=== PATIENT | female | born 2000 | race Caucasian/White ===

== ENCOUNTER 2024-12-13 12:08 | Emergency (ER) | payer BC, SELFPAY ==
[2024-12-13] VITALS (9 sets, daily range): BP systolic 114; BP diastolic 63; PULSE 46–84; RESP 18; TEMP 36.6; O2SAT 92–100; BMI 21.9
--- NOTE | 2024-12-13 12:09 | ED_ITS ---
HPI - General Adult General Date Seen: 12/13/24 Chief complaint: Headache/Migraine Stated complaint: Stabbing head pain Time Seen by Provider: 12/13/24 12:09 History of Present Illness HPI narrative: 24 yo F with history of migraine headaches, depression/anxiety (on sertraline) presenting to the ER today with headache. She does have history of migraines but the headache she has experienced this in this week is dissimilar to her previous migraine headaches. Beginning 2 days ago on Tuesday in the evening when she was driving home she has been experiencing sharp stabbing brief episodes of pain involving her left parietal head. Symptoms actually began she when she was in the car driving home. She was not really twisting her neck or checking her blind spot when it started. She has brief episodes lasting a 2nd or 2 of pretty severe pain in that area on her left scalp. They only last a 2nd or 2 per episode, they often happen in small groups like twice in a row. The episode happened perhaps a few times an hour, every 5 or 10 minutes. She was trying to take [id number] medications such as Tylenol and NyQuil and noted that when she took the NyQuil she was able to sleep but was woken a few times at night due to the episodes of pain. No other symptoms with these episodes. No blurry vision. No double vision. No trouble with hearing. No nausea. No vomiting. No neck pain. No focal numbness or weakness in her arms or legs. No confusion. She has not had any recent head injury. No known carbon monoxide exposure. She lives with a roommate and that roommate is healthy and without headaches. No recent fever. No neck pain. The episodes are not triggered by any neck movement. No change with position. She went to the urgent care yesterday was treated with a migraine cocktail which she notes did help decrease the frequency and severity of the episodes pain for a few hours but they came back again. Since the episodes were persisting she came back to the ER today. Related Data Home Medications ?Medication ?Instructions ?Recorded ?Confirmed dextroamphetamine-amphetamine 5 mg 1 tab PO QAM 12/12/24 12/13/24 tablet dextroamphetamine-amphetamine ER 1 cap PO QAM 12/12/24 12/13/24 10 mg 24hr capsule,extend release levonorgestrel (Mirena) 1 device intrauterine ONCE 12/12/24 12/13/24 sertraline 100 mg tablet 100 mg PO QAM 12/12/24 12/13/24 Previous Rx's ?Medication ?Instructions ?Recorded carbamazepine 100 mg 100 mg PO BID #28 tabs 12/13/24 tablet,extended release,12 hr Allergies Allergy/AdvReac Type Severity Reaction Status Date / Time No Known Drug Allergies Allergy Verified 12/13/24 12:18 Exam Narrative: Exam Narrative: Constitutional: Appears well-developed and well-nourished. Alert. Conversant. Non toxic. HENT: Head: Atraumatic. No depressed skull fracture, Raccoon Eyes, Sandhu's sign, or hemotympanum. Face normal. TMs normal. No lesions or rash on her scalp Nose: Nose normal. TMs and mastoids normal bilaterally. Mouth/Throat: Oral mucosa is clear and moist. no trismus. Pharynx normal. Tonsils symmetric. No tonsillar enlargement, erythema, or exudate. Eyes: Conjunctivae normal. EOM normal. Pupils equal, round, and reactive to light. No scleral icterus. Neck: Normal range of motion. Neck supple. No tracheal deviation present. Cardiovascular: Normal rate, regular rhythm. No gallop. No friction rub. No murmur heard. Symmetric radial artery pulses Pulmonary/Chest: Effort normal. No stridor. No respiratory distress. No wheezes. No rales. No rhonchi . No tenderness. Abdominal: Soft. Bowel sounds normal. No distension. No mass. No tenderness. No rebound. No guarding. Musculoskeletal: RUE: Normal range of motion. No tenderness. No deformity LUE: Normal range of motion. No tenderness. No deformity RLE: Normal range of motion. No edema. No tenderness. No deformity LLE: Normal range of motion. No edema. No tenderness. No deformity Lymph: No cervical adenopathy. Neurological: Mental status normal. Attention normal. Alert and oriented x3. GCS 15. Memory normal. Speech fluent. Cognition normal. Cranial Nerves intact II-XII except I did not formally test gag or visual acuity. EOMI. Palate elevates symmetrically and tongue protrudes in the midline. Strength: 5/5 trapezius on the right and left 5/5 deltoid on the right and left 5/5 biceps on the right and left 5/5 triceps on the right and left 5/5 city constable on the right and left 5/5 thumb opposition on the right and le ft 5/5 finger abduction on the right and le ft 5/5 hip flexors (L3) on the right and le ft 5/5 quadriceps (L4) on the right and lef t 5/5 tibialis anterior on the right and l eft 5/5 EHL (L5) on the right and left 5/5 gastrocnemius (S1) on the right and left 5/5 hamstring on the right and left Sensation intact to light touch in both upper extremities (C4-T1) Sensation intact to light touch in Both lower extremities (L4-S1). Finger to nose and coordination normal. Gait normal. Skin: Skin is warm and dry. No rash noted. No pallor. Normal capillary refill. Psychiatric: Normal mood. Normal affect. Very polite. Const: Vital Signs, click to edit/add: Vital Signs - 24 hr 12/13/24 12:13 12/13/24 13:53 12/13/24 14:00 Temperature 97.8 F Pulse Rate 61 49 L Pulse Rate [Right Pulse Oximeter] 63 Respiratory Rate 18 Blood Pressure [Ri ght Upper Arm] 114/63 Pulse Oximetry 98 96 97 Oxygen Delivery Me thod Room Air 12/13/24 14:19 12/13/24 14:30 12/13/24 14:45 Temperature Pulse Rate 84 47 L 46 L Pulse Rate [Right Pulse Oximeter] Respiratory Rate Blood Pressure [Ri ght Upper Arm] Pulse Oximetry 92 97 98 Oxygen Delivery Me thod 12/13/24 15:00 12/13/24 15:15 12/13/24 15:30 Temperature Pulse Rate 47 L 47 L 49 L Pulse Rate [Right Pulse Oximeter] Respiratory Rate Blood Pressure [Ri ght Upper Arm] Pulse Oximetry 98 98 100 Oxygen Delivery Me thod Course Vital Signs Vital signs: Initial Vital Signs Temperature 97.8 F 12/13/24 12:13 Temperature Source Temporal Artery Scan 12/13/24 12:13 Pulse Rate 63 12/13/24 12:13 Pulse Rhythm Regular 12/13/24 12:13 Pulse Strength 3+ Normal 12/13/24 12:13 Respiratory Rate 18 12/13/24 12:13 Blood Pressure 114/63 12/13/24 12:13 Blood Pressure Mean 80 12/13/24 12:13 Blood Pressure Position Sitting 12/13/24 12:13 Pulse Oximetry 98 12/13/24 12:13 Oxygen Delivery Method Room Air 12/13/24 12:13 Vital Signs Temperature 97.8 F 12/13/24 12:13 Pulse Rate 63 12/13/24 12:13 Respiratory Rate 18 12/13/24 12:13 Blood Pressure 114/63 12/13/24 12:13 Pulse Oximetry 98 12/13/24 12:13 Oxygen Delivery Method Room Air 12/13/24 12:13 Temperature 97.8 F 12/13/24 12:13 Pulse Rate 49 L 12/13/24 15:30 Respiratory Rate 18 12/13/24 12:13 Blood Pressure 114/63 12/13/24 12:13 Pulse Oximetry 100 12/13/24 15:30 Oxygen Delivery Method Room Air 12/13/24 12:13 Medications Administered Medications: Discontinued Medications Generic Name Dose Route Start Last Admin Trade Name Freq PRN Reason Stop Dose Admin Diphenhydramine HCl 12.5 mg 12/13/24 13:09 12/13/24 13:43 Diphenhydramine 50 Mg/Ml Inj IVP 12/13/24 13:10 12.5 mg ONCE ONE Administration Ketorolac Tromethamine 15 mg 12/13/24 13:09 12/13/24 13:42 Ketorolac 15 Mg/Ml Inj IVP 12/13/24 13:10 15 mg ONCE ONE Administration Metoclopramide HCl 10 mg 12/13/24 13:09 12/13/24 13:42 Metoclopramide Hcl 5 Mg/Ml Inj IVP 12/13/24 13:10 10 mg ONCE ONE Administration Medical Decision Making [facility] Narrative Medical decision making narrative: Ths patient presents with a a new pattern of headache with very brief sharp stabbing pains affecting the left parietal side of her head. A broad differential diagnosis was considered including tension, migraine, analgesic rebound, occipital neuralgia, etc. Other less common but serious causes considered included meningitis, encephalitis, subarachnoid bleed, stroke, tumor, etc. overall I have low suspicion for meningitis. She has no history of brain tumors, MS, or other [employer] disease. With the new pattern of headache I suspect this is probably a neuralgia although this does not fit the anatomic distribution of trigeminal neuralgia or occipital neuralgia. Differential would also include new brain tumor causing nerve compression, less likely would be cervical artery dissection. I had a discussion with the patient (and her mother by phone) and we decided to go ahead with imaging. We felt that MRI would be more beneficial than CT given added sensitivity for small lesions and conservation or radiation exposure. MRI of the patient's brain and MRA of her head neck are both normal. Patient had improvement in her symptoms after receiving Toradol and migraine cocktail here in the ER but the start stabbing pains are starting to come back. Will try the patient on empiric course of carbamazepine. Will started a low-dose to minimize side effects-100 mg p.o. b.i.d.. Patient understands she should follow-up with primary care for recheck within the next 1-2 weeks for re-evaluation, and if necessary, medication adjustment. Patient's questions were answered and they feel improved after above interventions in ED. Headache precautions given for home. Lab Data Labs: Lab Results 12/13/24 Range/Units 13:30 HCG, Qual Negative (Negative) Imaging Data MRI - head: Attestation: I have reviewed the pertinent imaging results. Radiologist's impression: Impression: MRI Head: 1. Unremarkable MRI brain. No evidence of acute intracranial abnormality. MRA Head: 1. No proximal arterial occlusion, high-grade stenosis, aneurysm or high-flow vascular malformation. MRA Neck: 1. No evidence for hemodynamically significant stenosis or dissection in the neck. Discharge Plan Discharge Clinical Impression: Headache, Neuralgia Patient Disposition: Home, Self-Care Condition: Stable Instructions: Acute Headache (DC) Additional Instructions: As we discussed so for your workup looks reassuring. I suspect that your headache is probably caused by a nerve pain from 1 of the nerves affecting the side of your head. You can treat this pain with your regular medications including Tylenol and ibuprofen. We will also start you on a medication called carbamazepine which can help with nerve related headaches and pain. We will start with a low dose of carbamazepine. This may take several days or week to start feeling better. Please follow-up with your regular doctor or with a doctor here in [place] within 1-2 weeks for a recheck. If you are not feeling better, your doctor may need to increase your dose carbamazepine. You can follow-up with your regular doctors at home and [facility]. If you need to you can call the [facility] at [phone] arrange an ER follow-up visit within 1-2 weeks. If you have any changing or worsening symptoms or any concerns, please come back to the ER right away. Prescriptions: New carbamazepine 100 mg tablet extended release 12 hr 100 mg PO BID Qty: 28 0RF No Action sertraline 100 mg tablet 100 mg PO QAM dextroamphetamine-amphetamine 10 mg capsule,extended release 24hr 1 cap PO QAM dextroamphetamine-amphetamine 5 mg tablet 1 tab PO QAM Mirena 21 mcg/24hr (up to 8 yrs) 52 mg intrauterine device 1 device intrauterine ONCE Rx Instructions: as a single dose Follow Up/Referrals: Provider,Not a Local [Primary Care Provider] - Stand Alone Forms: [facility] Info Instructions
--- OUTSIDE RECORDS SUMMARY | 2024-12-13 12:10 | XMS_ITS | Referral Summary ---
Author Organization [employer] Address [address] [place] [address] Care Team Providers Care Associate Software Development Engineer Name Role Phone Brandon Walton MD Unavailable [phone] Janis Jain MD Unavailable [phone] Rio Calle MD Primary Care Provider Allergies No known active allergies Medications loratadine (AKA: CLARITIN) 10 mg oral Tablet Take by mouth once daily. Active tretinoin (RETIN-A) 0.025 % topical CreamIndications: Acne vulgaris Apply to the affected area(s) at bedtime. Apply to affected area. 45 g 5 02/09/20 24 Active levonorgestreL (MIRENA) 21 mcg/24 hours (up to 8 year) 52 mg intrauterine IUDIndications:IU D (intrauterine device) in place 1 Intra Uterine Device by intrauterine route once. 02/15/20 24 032 Active fluconazole (DIFLUCAN) 150 mg oral TabletIndications :BV (bacterial vaginosis),IUD (intrauterine device) in place Take 1 Tablet (150 mg) by mouth every week. Please wait until you are done with antibiotics before you use 2 Tablet 02/15/20 24 Active albuterol sulfate (PROVENTIL,VENTOL IN,PROAIR) 90 mcg/actuation inhalation HFA Aerosol InhalerIndication s:Generalized anxiety disorder 1-2 Puffs by inhalation route every 4 hours if needed for shortness of breath, cough, or with exercise. 18 g 07/06/20 24 025 Active fluticasone propionate (FLONASE) 50 mcg/actuation nasal [place], Suspension 1 [place] by nasal route in the morning. 06/22/20 22 Active dextroamphetamine -amphetamine (ADDERALL XR) 10 mg oral Capsule, Sust. Release 24HRIndications:A ttention deficit hyperactivity disorder (ADHD), unspecified ADHD type Take 1 Capsule (10 mg) by mouth in the morning. 30 Capsule 08/07/20 24 Active dextroamphetamine -amphetamine (ADDERALL) 5 mg oral TabletIndications :Attention deficit hyperactivity disorder (ADHD), unspecified ADHD type Take 1 Tablet (5 mg) by mouth in the morning. 30 Tablet 08/07/20 24 Active sertraline (ZOLOFT) 100 mg oral TabletIndications :Generalized anxiety disorder Take 1 Tablet (100 mg) by mouth in the morning. 90 Tablet 3 09/06/19 25 Active Active Problems Problem Noted Date Diagnosed Date Restless leg syndrome 09/03/2024 BV (bacterial vaginosis) 02/15/2024 ADHD 02/07/2024 Generalized anxiety disorder 02/07/2024 Right eye trauma 06/16/2018 Overview (06/16/2018): Soccer ball to R eye. Hemangioma 03/13/2018 Overview (03/13/2018): R nipple biopsy. [place]. Vocal cord dysfunction 01/13/2018 Seasonal allergic rhinitis due to pollen 018 Adolescent idiopathic scoliosis 03/02/2017 Overview (08/24/2019): 03/21/17: [facility], Dr Brandon Walton: Mild scoliosis. 07/11/17: stable from previous visit. 07/10/18: stable from last year. Lumbar curve 18 degrees. F/U in 6 months with standing spine PA. 01/21; follow up in 2 years. Resolved Problems Problem Noted Date Diagnosed Date Resolved Date Vocal cord dysfunction 01/13/201806/16 Closed fracture of right gre at toe with routine healing 03/17/2015 02/28/2017 Overview (03/17/2015): Ortho. Concussion 12/23/2014 02/28/2017 Overview (12/23/2014): 11/28/14: [facility], Dr. Gross. ASSESSMENT: Post Trauma Vision Syndrome. PLAN: Prescribed a pair of glasses to be used for viewing anything within arm's reach as well as in the classroom setting. Also decrease her contact prescription in the left eye temporarily to better balance her visual system. FOLLOW UP: 2 months. Curvature of thoracic spine 10/09/2014 08/24/2019 Overview (10/09/2014): Suspected from leg length discrepancy. 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 Mendoza. Self referral. Shoe gear modification. Constipation 12/04/2009 12/30/2011 Hypertrophy of tonsils 12/04/200912/29 Overview (12/08/2010): T&A removed 02/20/10 Encounter for hearing examin ation following failed hearing screening 12/04/2009 12/30/2011 Tension type headache 12/04/20092011 Nocturnal and diurnal enuresis 09/04/2008 10/09/2014 Overview (12/30/2011): Mom history until age 10 - 12. [employer]DA[employer] works. Immunizations Immunization Administration Dates Next Due DTaP Vac, <7 Yrs, IM (Daptacel,Infanrix,Tripedia) 09/21/2007,01/30/2004,05/03/2003,01/30,2002 Hepatitis A Vaccine, IM, Ped /Adol (2 doses) 02/28/2017,10/09/2014 Hepatitis B/HIB Vaccine, IM, (Comvax) 10/11/2003 ,01/30/2003,2002 Human Papilloma Virus Vaccin e(Gardasil 9) 09/01/2015,04/17/2015 Human Papilloma Virus Vaccine(Gardasil) 10/09/2014 Influenza Vac, H1N1 08/08/2009 Influenza Vac, IM, Quadrivalent 07/18/2015,09/14 Influenza Vac, IM, Quadrival ent Preserv Free, (>6 months) 08/24/2019,06/25/2014 Influenza Vac, IM, Trivalent (6-35 Mo) 3,07/05/2003 Influenza Vac, IM, Trivalent (>3 Yrs) ,06/13/2009,06/09/2007,08/03 Influenza Vac, IM, Trivalent , Preserv Free (Flulaval)(Fluarix)(Fluzone) 06/13/2009 Influenza Vac, Intranasal, T rivalent (Flumist) 09/04/2008 MMR Vaccine (Mumps, Measles, Rubella) SQ 09/21/2007,10/11/2003 Meningococcal Conj Vac,Tetra valent, IM (Menactra) 10/09/2014 Meningococcal Conj Vac,Tetra valent, IM (Menveo) 08/24/2019 Pneumococcal Conj,Poly,Vac,IM,<5Yr(Prevnar 7) 05/03/2003,01/30/2003,2002 Poliovirus Vaccine, IM or SQ (IPV) 09/21,05/03/2003,01/30/2003,12/06 Tdap Vaccine, IM, (Adacel)(Boostrix) 10/09/2014 Varicella Vaccine, SQ (Varivax) 09/21/2007,01/29 Social History Tobacco Use Types Packs/Day Years Used Date Smoking Tobacco: Never Smokeless Tobacco: Never Alcohol Use Standard Drinks/Week Comments No 0 (1 standard drink = 0.6 oz pur e alcohol) B1300 Health Literacy Answer Date Recor ded How often do you need to hav e someone help you when you read instructions, pamphlets, or other written material from your doctor or pharmacy? Never 02/15/2024 [facility] Utilities Answer Date Recorded In the past 12 months has th e electric, gas, oil, or water company threatened to shut off services in your home? No 02/15/2024 Humiliation, Afraid, Rape, and Kick questionnair e Answer Date Recorded Within the last year, have y ou been afraid of your partner or ex-partner? No 02/15/2024 Within the last year, have y ou been humiliated or emotionally abused in other ways by your partner or ex-partner? No Within the last year, have y ou been kicked, hit, slapped, or otherwise physically hurt by your partner or ex-partner? No 02/15/2024 Within the last year, have y ou been raped or forced to have any kind of sexual activity by your partner or ex-partner? No 02/15/2024 Social Connection and Isolat ion Panel [NHANES] Answer Date Recorded In a typical week, how many times do you talk on the phone with family, friends, or neighbors? More than three times a week 02/15/2024 How often do you get togethe r with friends or relatives? Once a week 02/15/2024 How often do you attend chur or restoration services? Never 02/15/2024 Do you belong to any clubs o r organizations such as temple groups, unions, fraternal or athletic groups, or school groups? Yes 02/15/2024 How often do you attend meet ings of the clubs or organizations you belong to? More than 4 times per year 02/15/2024 Are you , , di vorced, , never , or living with a partner? Never 02/15/2024 AUDIT-C Answer Date Recorded Q1: How often do you have a drink containing alc ohol? Monthly or less 02/15/2024 Q2: How many drinks containi ng alcohol do you have on a typical day when you are drinking? 1 or 2 02/15/2024 Q3: How often do you have si x or more drinks on one occasion? Never 02/15/2024 Overall Financial Resource Strain (CARDIA) Answe r Date Recorded How hard is it for you to pa y for the very basics like food, housing, medical care, and heating? Not hard at all 02/15/2024 [facility] of Occupat ional Health - Occupational Stress Questionnaire Answer Date Recorded Do you feel stress - tense, restless, nervous, or anxious, or unable to sleep at night because your mind is troubled all the time - these days? Not at all 02/15/2024 Exercise Vital Sign Answer Date Recorde d On average, how many days pe r week do you engage in moderate to strenuous exercise (like a brisk walk)? 6 days 02/15/2024 On average, how many minutes do you engage in exercise at this level? 90 min 02/15/2024 Hunger Vital Sign Answer Date Recorded Within the past 12 months, y ou worried that your food would run out before you got the money to buy more. Never true 02/15/20 24 Within the past 12 months, t he food you bought just didn't last and you didn't have money to get more. Never true 02/15/2024 Housing Stability Vital Sign Answer Krystian e Recorded In the last 12 months, was t here a time when you were not able to pay the mortgage or rent on time? No 02/15/2024 In the past 12 months, how m any times have you moved where you were living? 0 02/15/2024 At any time in the past 12 m onths, were you homeless or living in a residential (including now)? No 02/15/2024 Housing Stability Answer Date Recorded In the last 12 months, was t here a time when you were not able to pay the mortgage or rent on time? No 02/15/2024 Number of Places Lived in the Last Year Not on f ile 02/15/2024 Number of Places Lived in the Last Year (Outpati ent) Not on file 02/15/2024 Number of Places Lived in the Last Year (Inpatie nt) Not on file 02/15/2024 Unstable Housing in the Last Year Not on file 02/15/2024 Depression (PHQ-9) Answer Date Recorded Last PHQ-9 Score 0 08/07/2024 Thoughts of self harm Not at all 08/07/2024 Pediatric Housing Stability Answer Date Recorded At any time in the past 12 m [facility], were you homeless or living in a residential (including now)? No 02/15/2024 In the past 12 months, how m any times have you moved where you were living? 0 02/15/2024 Housing Condition Worry Not on file 02/15/20 24 Intimate Partner Violence Answer Date R ecorded Are you in a relationship wh ere you are physically hurt, threatened and/or made to feel afraid? No 02/15/2024 Transportation Needs Answer Date Record ed In the past 12 months, has l ack of transportation kept you from medical appointments, meetings, work, or from getting medicines or things needed for daily living? No 02/15/2024 Caregiver Education and Work Answer Krystian e Recorded High School Degree Not on file 02/15/2024 How often do you need to hav e someone help you when you read instructions, pamphlets, or other written material from your doctor or pharmacy? Never 02/15/2024 Comments No Sex and Gender Information Value Date Recorded Sex Assigned at Not on file Legal Sex Female 3:35 AM DRIVER LICENSE REVIEWING OFFICER Gender Identity Female 02/07/2024 10:19 AM CDT Sexual Orientation Not on file Last Filed Vital Signs Vital Sign Reading Time Taken Comments Blood Pressure 121/73 04/09/2024 6:35 PM CDT Pulse 60 04/09/2024 6:35 PM CDT Temperature 36.8 C (98.2 F) 04/09/2024 6:35 PM CDT Respiratory Rate 15 04/09/2024 6:35 PM CDT Oxygen Saturation 99% 04/09/2024 6:35 PM CDT Inhaled Oxygen Concentration - - Weight 63.3 kg (139 lb 9.6 oz) 02/15/2024 8:09 A M CDT Height 171.2 cm (5' 7.4) 02/15/2024 8:09 AM CDT Body Mass Index 21.61 02/15/2024 8:09 AM CDT Functional Status * Are you deaf or do you have serious difficulty hearing? Answer Date of Assessment Author No 04/09/2024 6:34 PM CDT Hillary Willson RN * Are you blind or do you have serious difficulty seeing, even when wearing glasses? Answer Date of Assessment Author No 04/09/2024 6:34 PM CDT Hillary Willson RN * Do you have serious difficulty walking or climbing stairs? Answer Date of Assessment Author No 04/09/2024 6:34 PM CDT Hillary Willson RN * Do you have difficulty dressing or bathing? Answer Date of Assessment Author No 04/09/2024 6:34 PM CELESTET Hillary Willson RN * Do you have difficulty doing errands alone such as visiting a doctor's office or shopping because of a physical, mental, or emotional condition? Answer Date of Assessment Author No 04/09/2024 6:34 PM CDT Hillary Willson RN Mental Status * Do you have trouble concentrating, remembering, or making decisions because of a physical, mental, or emotional condition? Answer Entry Date Author No 04/09/2024 6:34 PM CELESTET Hillary Willson RN Plan of Treatment Not on file Procedures Procedure Name Priority Date/Time Associated Diagnosis Comments CHLAMYDIA TRACHOMATIS AND NEISSERIA GONORRHOEAE, GENITAL AND URINE SOURCES, NAAT Routine 02/15/2024 8:57 AM CDT BV (bacterial vaginosis) IUD (intrauterine device) in place HIV-1 AND HIV-2 AG AND AB Routine 02/07/2024 11:10 AM CDT Encounter for screening for HIV HEPATITIS C AB Routine 02/07/2024 11:10 AM CDT Encounter for hepatitis C screening test for low risk patient PAP TEST Routine 02/07/2024 10:55 AM CDT Cervical cancer screening from Last 3 Months or Most Recently Relevant to Health Maintenance Results * CHLAMYDIA TRACHOMATIS AND NEISSERIA GONORRHOEAE, GENITAL AND URINE SOURCES, NAAT (02/15/2024 8:57 AM CDT) Chlamydia trachomatis, NAAT Negative Negative HOLOGIC PANTHER 02/16/2024 9:52 AM CDT [facility] Neisseria gonorrhoeae, NAAT Negative Negative HOLOGIC PANTHER 02/16/2024 9:52 AM CDT [facility] Swab ENDOCERVICAL STRUCTURE / Unknown Non-blood Collection / Unknown 02/15/2024 8:57 AM CDT 02/15/2024 9:34 AM CDT Narrative [facility] - 02/16/2024 9:52 AM CDT Methodology: RNA Target Amplification Veronica SHRESTHA LAB MOLECULAR O RDERABLES Final Result Performing Organization Address City/[facility]/ZIP Co de Phone Number [facility] [address] [place] [address], [place] [phone] * HEPATITIS C AB (02/07/2024 11:10 AM CDT) HCV Ab Nonreactive Nonreactive 02/07/2024 2:35 PM CDT [facility] Comment:Interpretation: Anti bodies to HCV were not detected; does not exclude the possibility of exposure to HCV. Blood VENOUS BLOOD / Unknown Venipuncture / Unknown 02/07/2024 11:10 AM CDT 02/07/2024 11:10 AM CDT Rio Calle MD LAB SEROLOGY ORDERABLES Final R esult Performing Organization Address City/[facility]/ZIP Co de Phone Number [facility] [address] [place] [address], [place] [phone] * HIV-1 AND HIV-2 AG AND AB (02/07/2024 11:10 AM CDT) HIV 1/2 Ab/Ag Nonreactive Nonreactive 2:33 PM CDT [facility] Blood VENOUS BLOOD / Unknown Venipuncture / Unknown 02/07/2024 11:10 AM CDT 02/07/2024 11:10 AM CDT Rio Calle MD LAB SEROLOGY ORDERABLES Final R esult [facility] [address] [place] [address], [place] [phone] * (ABNORMAL) PAP TEST (02/07/2024 10:55 AM CDT) Specimen Adequacy Satisfactory for evaluation: Endocervical component present. 4 10:01 AM T [facility] Interpretation Negative for intraepithelial lesion or malignancy. Negative 10:01 AM T [facility] Other Findings Fungal organisms morphologically consistent with Geraldine spp.(A) Follicular cervicitis, Moderate acute and chronic inflammatio n., Moderate acute inflammatio n., Moderate chronic inflammatio n., Severe acute and chronic inflammatio n., Severe acute inflammatio n., Specimen has been reflexed for HPV testing, follow-up as... 10:01 AM T [facility] HPV Reflex? Reflex if ASCUS only 10:01 AM T [facility] Menstrual Status Having periods 10:01 AM [facility] Disclaimer/Infor mational Comment The Pap test is an initial screening test that is helpful in the detection of certain benign, pre-malignant disorders of cervical and vaginal tissues. Like all medical tests, the Pap test has an inherent false-negative and false-positive rate, therefore, regular gynecologic health care with Pap test screening is highly suggested. In addition, an abnormal result may require additional confirmatory testing. 4 10:01 AM T [facility] Other CERVIX UTERI STRUCTURE / Unknown Non-blood Collection / Unknown 02/07/2024 10:55 AM CDT 02/07/2024 3:05 PM CDT us Rio Calle MD LAB CYTOLOGY ORDERABLES Final R esult [facility] [address] [place] [address], from Last 3 Months or Most Recently Relevant to Health Maintenance Insurance [employer] Care Teams Associate Software Development Engineer Relationship Specialty Start Date End Date Rio Calle MD [address] [place] [address] [address] [place] [phone] PCP - General Family Medicine 02/07/24 Brandon Walton MD [address] [facility] [address] [place] [address] 10/03/17 Janis Jain MD [address] [place] [phone] 10/03/17 Additional Source Comments PLEASE NOTE: Replies to this message will not be received.[facility]
--- OUTSIDE RECORDS SUMMARY | 2024-12-13 12:10 | XMS_ITS | Encounter Summary ---
Author Organization [facility] Address [address] [place] [address] Care Team Providers Care Hand Almond Blancher Name Role Phone Janis Jain MD Primary Care Provider [phone] Brandon Walton MD Unavailable [phone] Janis Jain MD Unavailable [phone] Unknown, Provider Primary Care Provider Unavaila ble Janis Jain MD Primary Care Provider [phone] Rio Calle MD Primary Care Provider [phone] Encounter Details Date Type Department Care Team (Late st Contact Info) Description 08/22/2014 Historical Conversion [facility] Family Medicine [address] [place] [id number] Alma Pearson MD [address] [facility] [address] [place] [address] Social History Tobacco Use Types Packs/Day Years Used Date Smoking Tobacco: Never Smokeless Tobacco: Never Alcohol Use Standard Drinks/Week Comments No 0 (1 standard drink = 0.6 oz pur e alcohol) Comments No Sex and Gender Information Value Date Recorded Sex Assigned at Not on file 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 Gender Identity Female 02/07/2024 10:19 AM CDT Sexual Orientation Not on file documented as of this encounter Last Filed Vital Signs Vital Sign Reading Time Taken Comments Blood Pressure 100/79 08/22/2014 8:45 PM ADMINISTRATIVE VOLUNTEER Pulse - - Temperature - - Respiratory Rate - - Oxygen Saturation - - Inhaled Oxygen Concentration - - Weight 35.9 kg (79 lb 4 oz) 08/22/2014 8:[address] Height 148.6 cm (4' 10.5) 08/22/2014 8:45 PM CS T Body Mass Index 16.28 08/22/2014 8:45 PM ADMINISTRATIVE VOLUNTEER Body Mass Index Percentile 22.56% 08/22/2014 8:4 5 PM ADMINISTRATIVE VOLUNTEER Growth Chart: [facility] (Girls, 2- 20 Years) documented in this encounter Functional Status * Are you deaf or do you have serious difficulty hearing? Answer Date of Assessment Author No 01/28/2014 12:36 PM CDT Mahogany Bhakta LPN * Are you blind or do you have serious difficulty seeing, even when wearing glasses? Answer Date of Assessment Author No 01/28/2014 12:36 PM CDT Mahogany Bhakta LPN * Do you have serious difficulty walking or climbing stairs? Answer Date of Assessment Author No 01/28/2014 12:36 PM CDT Mahgoany Bhakta LPN * Do you have difficulty dressing or bathing? Answer Date of Assessment Author No 01/28/2014 12:36 PM CDT Mahogany Bhakta LPN * Do you have difficulty doing errands alone such as visiting a doctor's office or shopping because of a physical, mental, or emotional condition? Answer Date of Assessment Author No 01/28/2014 12:36 PM CDT Mahogany Bhakta LPN documented as of this encounter Mental Status * Do you have trouble concentrating, remembering, or making decisions because of a physical, mental, or emotional condition? Answer Entry Date Author No 01/28/2014 12:36 PM CDT Mahogany Bhakta LPN documented in this encounter Plan of Treatment Not on file documented as of this encounter Visit Diagnoses Not on filedocumented in this encounter Additional Health Concerns Infection Onset Date Last Indicated Resolved Time COVID-19 Rule Out 02/08/2020 02/08/2020 02/08/2020 2:45 PM CDT documented as of this encounter Care Teams Hand Almond Blancher Relationship Specialty Start Date End Date Janis Jain MD [address] [place] [address] [place] [phone] PCP - General 09/04/08 04/03/20 Unknown, Provider . SURJIT ROY [address] PCP - General 04/04/20 04/10/20 Janis Jain MD [address] [place] [address] [place] [phone] PCP - General Pediatrics 04/11/20 02/06/24 Rio Calle MD [address] [place] [address] [address] [phone] PCP - General Family Medicine 02/07/24 Brandon Walton MD [address] [place] [address] [facility] [address] [place] [address] 10/03/17 Janis Jain MD [address] [place] [address] [place] [phone] 10/03/17 documented as of this encounter Additional Source Comments PLEASE NOTE: Replies to this message will not be received.[facility]
--- OUTSIDE RECORDS SUMMARY | 2024-12-13 12:10 | XMS_ITS | Encounter Summary ---
Author Organization [facility] [facility] Address [address] [place] [address] Care Team Providers Care Bottler Name Role Phone Janis Jain MD Primary Care Provider Brandon Walton MD Unavailable [phone] Janis Jain MD Unavailable [phone] Unknown, Provider Primary Care Provider Unavaila ble Janis Jain MD Primary Care Provider [phone] Rio Calle MD Primary Care Provider [phone] Encounter Details Date Type Department Care Team (Late st Contact Info) Description 07/09/2012 Historical Conversion [facility] Family Medicine [address] [place] [address] Ishan Erickson MD [address], [place] [address] Social History Tobacco Use Types Packs/Day Years Used Date Smoking Tobacco: Never Alcohol Use Standard Drinks/Week Comments No 0 (1 standard drink = 0.6 oz pur e alcohol) Comments Unknown Sex and Gender Information Value Date Recorded Sex Assigned at Not on file 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 Gender Identity Female 02/07/2024 10:19 AM CDT Sexual Orientation Not on file documented as of this encounter Last Filed Vital Signs Vital Sign Reading Time Taken Comments Blood Pressure - - Pulse - - Temperature - - Respiratory Rate - - Oxygen Saturation - - Inhaled Oxygen Concentration - - Weight 29.9 kg (66 lb) 07/09/2012 4:29 PM EMERGENCY OPERATOR Height 139.7 cm (4' 7) 07/09/2012 4:29 PM EMERGENCY OPERATOR Body Mass Index 15.34 07/09/2012 4:29 PM EMERGENCY OPERATOR Body Mass Index Percentile 24.33% 07/09/2012 4:2 9 PM EMERGENCY OPERATOR Growth Chart: [facility] (Girls, 2- 20 Years) documented in this encounter Plan of Treatment Not on file documented as of this encounter Visit Diagnoses Not on filedocumented in this encounter Additional Health Concerns Infection Onset Date Last Indicated Resolved Time COVID-19 Rule Out 02/08/2020 02/08/2020 02/08/2020 2:45 PM CDT documented as of this encounter Care Teams Bottler Relationship Specialty Start Date End Date Janis Jain MD [address] [place] [phone] PCP - General 09/04/08 04/03/20 Unknown, [place] [address] PCP - General 04/04/20 04/10/20 Janis Jain MD [address] [place] [phone] PCP - General Pediatrics 04/11/20 02/06/24 Rio Calle MD [address] [place] [address] [address] [place] [phone] PCP - General Family Medicine 02/07/24 Brandon Walton MD [address] [facility] [address] [place] [address] 10/03/17 Janis Jain MD [address] [place] [phone] 10/03/17 documented as of this encounter Additional Source Comments PLEASE NOTE: Replies to this message will not be received.[facility] and [facility]
--- OUTSIDE RECORDS SUMMARY | 2024-12-13 12:10 | XMS_ITS | Clinical Summary ---
Author Organization [employer] [facility] [employer] Address [address] [place] [address] Care Team Providers Care Administrative Assistant Front Desk Name Role Phone Brandon Walton MD Unavailable [phone] Janis Jain MD Unavailable [phone] Rio Calle MD Primary Care Provider [...] Active fluticasone propionate (FLONASE) 50 mcg/actuation nasal [place], Suspension 1 [place] by nasal route in the morning. 06/22/20 [...] (Adacel)(Boostrix) 10/09/2014 Varicella Vaccine, SQ (Varivax) 09/21/2007,01/29 Family History Medical History Relation Name Comments Other Brother Arian Hyperlipidemia Father Julio Heart Disease Paternal Grandfather Jt Hyperlipidemia Paternal Grandfather Jt Relation Name Status Comments Brother Arian Alive Father Julio Alive Mother Maile Alive Paternal Grandfather Jt Paternal Grandmother Linda Alive Sister Matilda Alive Social History Tobacco Use Types Packs/Day Years [...] from your doctor or pharmacy? Never 02/15/2024 [facility] Utilities Answer Date Recorded In the past 12 months has e [employer], gas, oil, or water [employer] threatened to shut off services in your [...] How often do you attend chur or samaritan services? Never 02/15/2024 Do you belong to any clubs o r organizations such as protestant groups, unions, fraternal or athletic groups, or [...] and heating? Not hard at all 02/15/2024 [facility] - Occupational Stress [...] any time in the past 12 m [facility], were you homeless or living in a [place] health care facility (including now)? No 02/15/2024 Housing Stability Answer [...] any time in the past 12 m [facility], were you homeless or living in a [place] health [place] facility (including now)? No 02/15/2024 In the past [...] on file Legal Sex Female 3:35 AM STEEL FABRICATOR Gender Identity Female 02/07/2024 10:19 AM CDT [...] Mass Index 21.61 02/15/2024 8:09 AM CDT Plan of Treatment Health Maintenance Due Date Last Done Comments COVID-19 Vaccine (2023- season) 2024 09/02/2021, 12/25/2020, 12/04/2020 DTaP/Tdap/Td Vaccines (7 - Td or Tdap) 10/09/2024 10/09/2014, 09/21/2007, 01/30/2004, Additional history exists Chlamydia Screen Age 16-24 Years 02/14/2025 02/15/2024, 05/16/2019 Depression Screening 08/07/2025 08/07/2024, 08/07/20 24 Cervical Cancer Screening 02/06/2027 02/07/2024 Varicella Zoster Sequential (1 of 2) 2052 Respiratory Syncytial Virus (RSV) Vaccine (1 - 1-dose 75+ series) 2077 Pneumococcal Vaccine (0-49 Years) Aged Out 05/03/2003, 01/30/2003, 2002 No longer eligible based on patient's age to complete this topic HIB Vaccines Completed 10/11/2003, 01/04, 2002 Hepatitis B Vaccines Completed 10/11/2003, 01/30/2003, 2002 HPV Vaccines Completed 09/01/2015, 04/05, 10/09/2014 Hepatitis A Vaccines Completed 02/28/2017, 10/09/19 15 Meningococcal Vaccines Completed 08/24/2019, 2014 Meningococcal B Vaccines Completed 12/29/2021, 04/05 HIV Screen Completed 02/07/2024 Hepatitis C Testing Completed 02/07/2024 Influenza Vaccine Completed 06/07/2024, , 07/02/2021, Additional history exists Procedures Procedure Name Priority Date/Time Associated Diagnosis [...] Negative HOLOGIC PANTHER 02/16/2024 9:52 AM CDT [facility] Neisseria gonorrhoeae, NAAT Negative [facility] 02/16/2024 9:52 AM CDT [facility] Swab ENDOCERVICAL STRUCTURE / Unknown Non-blood Collection / Unknown 02/15/2024 8:57 AM CDT 02/15/2024 9:34 AM CDT Narrative [facility] - 02/16/2024 9:52 AM CDT Methodology: RNA Target Amplification us Veronica SHRESTHA LAB MOLECULAR O RDERABLES Final Result [facility] [address] [place] [address], [place] [phone] * HEPATITIS C AB (02/07/2024 11:10 AM CDT) Pathologist [facility] HCV Ab Nonreactive Nonreactive 02/07/2024 2:35 PM CDT [facility] Comment:Interpretation: Anti bodies to HCV were not detected; does not exclude the possibility of exposure to HCV. Blood VENOUS BLOOD / Unknown Venipuncture / Unknown 02/07/2024 11:10 AM CDT 02/07/2024 11:10 AM CDT us Rio Calle MD LAB SEROLOGY ORDERABLES Final R esult [facility] [address] [place] [address], [place] [phone] * HIV-1 AND HIV-2 AG AND AB (02/07/2024 11:10 AM CDT) HIV 1/2 Ab/Ag Nonreactive Nonreactive 4 2:33 PM CDT [facility] Blood VENOUS BLOOD / Unknown Venipuncture / Unknown 02/07/2024 11:10 AM CDT 02/07/2024 11:10 AM CDT us Rio Calle MD LAB SEROLOGY ORDERABLES Final R esult [facility] [address] [place] [address], [place] [phone] * (ABNORMAL) PAP TEST (02/07/2024 10:55 AM CDT) Specimen Adequacy Satisfactory for evaluation: Endocervical component present. 4 10:01 AM T [facility] Interpretation Negative for intraepithelial lesion or malignancy. 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 4 10:01 AM T [facility] HPV Reflex? Reflex if ASCUS only 4 10:01 AM [facility] Menstrual Status Having periods / 10:01 AM T [facility] Disclaimer/Infor mational Comment The Pap [...] abnormal result may require additional confirmatory testing. 10:01 AM CDT [facility] LABORATORY [facility] Other CERVIX UTERI STRUCTURE / Unknown Non-blood Collection / Unknown 02/07/2024 10:55 AM CDT 02/07/2024 3:05 PM CDT us Rio Calle MD LAB CYTOLOGY ORDERABLES Final R esult [facility] [address] [place] [address], from Last 3 Months or Most Recently Relevant to Health Maintenance Insurance [facility] [employer] [facility] [employer] [facility] [employer] [facility] [employer] Care Teams Administrative Assistant Front Desk Relationship Specialty Start Date End Date Rio Calle MD [address] [place] [address] [address] [place] [phone] PCP - General Family Medicine 02/07/24 Brandon Walton MD [address] [facility] [address] [place] [address] 10/03/17 Janis Jain MD [address] [place] [phone] 10/03/17 Additional Source Comments PLEASE NOTE: Replies to this message will not be received.[facility] and [facility]
--- OUTSIDE RECORDS SUMMARY | 2024-12-13 12:10 | XMS_ITS | Encounter Summary ---
Author Organization [facility] Address [address] [place] [address] Care Team Providers Care Aerospace Physiological Technician Name Role Phone Janis Jain MD Primary Care Provider [phone] Brandon Walton MD Unavailable Janis Jain MD Unavailable [phone] Unknown, Provider Primary Care Provider Unavaila ble Janis Jain MD Primary Care Provider [phone] Rio Calle MD Primary Care Provider [phone] Encounter Details Date Type Department Care Team (Late st Contact Info) Description 08/22/2014 Historical Conversion [facility] Family Medicine [address] [place] [address] Alma Pearson MD [address] [facility] [address] [place] [address] Social History Tobacco Use Types Packs/Day Years Used Date Smoking Tobacco: Never Smokeless Tobacco: Never Alcohol Use Standard Drinks/Week Comments No 0 (1 standard drink = 0.6 oz pur e alcohol) Comments No Sex and Gender Information Value Date Recorded Sex Assigned at Not on file 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 Answer Date of Assessment Author No 01/28/2014 12:36 PM CDT Mahogany Bhakta, MARKETING PROJECT COORDINATOR * Are you blind or do you have serious difficulty seeing, even when wearing glasses? Answer Date of Assessment Author No 01/28/2014 12:36 PM CDT Mahogany Bhakta, MARKETING PROJECT COORDINATOR * Do you have serious difficulty walking or climbing stairs? Answer Date of Assessment Author No 01/28/2014 12:36 PM CDT Mahogany Bhakta, MARKETING PROJECT COORDINATOR * Do you have difficulty dressing or bathing? Answer Date of Assessment Author No 01/28/2014 12:36 PM CDT Mahogany Bhakta, MARKETING PROJECT COORDINATOR * Do you have difficulty doing errands alone such as visiting a doctor's office or shopping because of a physical, mental, or emotional condition? Answer Date of Assessment Author No 01/28/2014 12:36 PM CDT Mahogany Bhakta, MARKETING PROJECT COORDINATOR documented as of this encounter Mental Status * Do you have trouble concentrating, remembering, or making decisions because of a physical, mental, or emotional condition? Answer Entry Date Author No 01/28/2014 12:36 PM CDT Mahogany Bhakta, MARKETING PROJECT COORDINATOR documented in this encounter Plan of Treatment Not on file documented as of this encounter Visit Diagnoses Not on filedocumented in this encounter Additional Health Concerns Infection Onset Date Last Indicated Resolved Time COVID-19 Rule Out 02/08/2020 02/08/2020 02/08/2020 2:45 PM CDT documented as of this encounter Care Teams Aerospace Physiological Technician Relationship Specialty Start Date End Date Janis Jain MD [address] [place] [phone] PCP - General 09/04/08 04/03/20 Unknown, Provider . [place] [address] PCP - General 04/04/20 04/10/20 Janis Jain MD [address] [place] [address] [place] [phone] PCP - General Pediatrics 04/11/20 02/06/24 Rio Calle MD [address] [place] [address] 120 [place] [phone] PCP - General Family Medicine 02/07/24 Brandon Walton MD [address] [facility] [address] [place] [address] 10/03/17 Janis Jain MD [address] [place] [phone] 10/03/17 documented as of this encounter Additional Source Comments PLEASE NOTE: Replies to this message will not be received.[facility]
--- OUTSIDE RECORDS SUMMARY | 2024-12-13 12:11 | XMS_ITS | Encounter Summary ---
Author Organization [facility] [employer] [facility] Address [address] [place] [address] Care Team Providers Care Quality Control Lab Tech Name Role Phone Janis Jain MD Primary Care Provider [phone] Brandon Walton MD Unavailable [phone] Janis Jain MD Unavailable [phone] Unknown, Provider Primary Care Provider Unavaila ble Janis Jain MD Primary Care Provider Rio Calel MD Primary Care Provider [phone] Encounter Details Date Type Department Care Team (Late st Contact Info) Description 09/22/2016 Historical Conversion [facility] Family Medicine [address] [place] [address] Racquel Ashby, [place] Social History Tobacco Use Types Packs/Day Years Used Date Smoking Tobacco: Never Smokeless Tobacco: Never Alcohol Use Standard Drinks/Week Comments No 0 (1 standard drink = 0.6 oz pur e alcohol) Comments No Sex and Gender Information Value Date Recorded Sex Assigned at Not on file Legal Sex Female 3:35 AM COMPUTER SYSTEMS ADMINISTRATOR Gender Identity Female 02/07/2024 10:19 AM CDT Sexual Orientation Not on file documented as of this encounter Last Filed Vital Signs Vital Sign Reading Time Taken Comments Blood Pressure 99/57 09/22/2016 7:12 PM COMPUTER SYSTEMS ADMINISTRATOR Pulse - - Temperature - - Respiratory Rate - - Oxygen Saturation - - Inhaled Oxygen Concentration - - Weight 50 kg (110 lb 4 oz) 09/22/2016 7:12 PM CS T Height 163.3 cm (5' 4.3) 09/22/2016 7:12 PM COMPUTER SYSTEMS ADMINISTRATOR Body Mass Index 18.75 09/22/2016 7:12 PM COMPUTER SYSTEMS ADMINISTRATOR Body Mass Index Percentile 42.03% 09/22/2016 7:1 2 PM COMPUTER SYSTEMS ADMINISTRATOR Growth Chart: [facility] (Girls, 2- 20 Years) documented in this encounter Functional Status * Are you deaf or do you have serious difficulty hearing? Answer Date of Assessment Author No 01/28/2014 12:36 PM CDT Mahogany Bhakta LPN * Are you blind or do you have serious difficulty seeing, even when wearing glasses? Answer Date of Assessment Author No 01/28/2014 12:36 PM CDT Mahogany Bhakta, NUT CULLER * Do you have serious difficulty walking or climbing stairs? Answer Date of Assessment Author No 01/28/2014 12:36 PM CDT Mahogany Bhakta, NUT CULLER * Do you have difficulty dressing or bathing? Answer Date of Assessment Author No 01/28/2014 12:36 PM CDT Mahogany Bhakta, NUT CULLER * Do you have difficulty doing errands alone such as visiting a doctor's office or shopping because of a physical, mental, or emotional condition? Answer Date of Assessment Author No 01/28/2014 12:36 PM CDT Mahogany Bhakta, NUT CULLER documented as of this encounter Mental Status * Do you have trouble concentrating, remembering, or making decisions because of a physical, mental, or emotional condition? Answer Entry Date Author No 01/28/2014 12:36 PM CDT Mahogany Bhakta, NUT CULLER documented in this encounter Plan of Treatment Not on file documented as of this encounter Visit Diagnoses Not on filedocumented in this encounter Additional Health Concerns Infection Onset Date Last Indicated Resolved Time COVID-19 Rule Out 02/08/2020 02/08/2020 02/08/2020 2:45 PM CDT documented as of this encounter Care Teams Quality Control Lab Tech Relationship Specialty Start Date End Date Janis Jain MD [address] [place] [address] [place] [phone] PCP - General 09/04/08 04/03/20 Unknown, Provider . [place] [address] PCP - General 04/04/20 04/10/20 Janis Jain MD [address] [place] [phone] PCP - General Pediatrics 04/11/20 02/06/24 Rio Calle MD [address] [place] [address] [address] [place] [phone] PCP - General Family Medicine 02/07/24 Brandon Walton MD [address] [facility] [address] [place] [address] 10/03/17 Janis Jain MD [address] [place] [phone] 10/03/17 documented as of this encounter Additional Source Comments PLEASE NOTE: Replies to this message will not be received.[facility] and [facility]
--- OUTSIDE RECORDS SUMMARY | 2024-12-13 12:11 | XMS_ITS | Encounter Summary ---
Author Organization [facility] [employer] [facility] Address [address] [place] [address] Care Team Providers Care Scientific Software Engineer Name Role Phone Janis Jain MD Primary Care Provider [phone] Brandon Walton MD Unavailable [phone] Janis Jain MD Unavailable [phone] Unknown, Provider Primary Care Provider Unavaila ble Janis Jain MD Primary Care Provider [phone] Rio aClle MD Primary Care Provider [phone] Encounter Details Date Type Department Care Team (Late st Contact Info) Description 09/22/2016 Historical Conversion [address] [address] Racquel Ashby, [place] Social History Tobacco Use Types Packs/Day Years Used Date Smoking Tobacco: Never Smokeless Tobacco: Never Alcohol Use Standard Drinks/Week Comments No 0 (1 standard drink = 0.6 oz pur e alcohol) Comments No Sex and Gender Information Value Date Recorded Sex Assigned at Not on file Legal Sex Female 3:35 AM RESOURCE CONSERVATION SPECIALIST Gender Identity Female 02/07/2024 10:19 AM CDT [...] No 01/28/2014 12:36 PM CDT Mahogany Bhakta, DEVELOPMENT OFFICER * Do you have difficulty doing errands [...] No 01/28/2014 12:36 PM CDT Mahogany Bhakta, MAX documented in this encounter Plan of Treatment Not on file documented as of this encounter Visit Diagnoses Not on filedocumented in this encounter Additional Health Concerns Infection Onset Date Last Indicated Resolved Time COVID-19 Rule Out 02/08/2020 02/08/2020 02/08/2020 2:45 PM CDT documented as of this encounter Care Teams Scientific Software Engineer Relationship Specialty Start Date End Date Janis Jain MD [address] [place], [place] [address] [phone] PCP - General 09/04/08 04/03/20 Unknown, [place] [address] PCP - General 04/04/20 04/10/20 Janis Jain MD [address] [place] [address] [place] [phone] PCP - General Pediatrics 04/11/20 02/06/24 Rio Calle MD [address] [place] [address] 120 [place] [phone] PCP - General Family Medicine 02/07/24 Brandon Walton MD [address] [facility] [address] [place] [address] 10/03/17 Janis Jain MD [address] [place] [phone] 10/03/17 documented as of this encounter Additional Source Comments PLEASE NOTE: Replies to this message will not be received.[facility] and [facility] [place] [facility]
--- OUTSIDE RECORDS SUMMARY | 2024-12-13 12:11 | XMS_ITS | Encounter Summary ---
Author Organization [facility] [employer] [facility] Address [address] [place] [address] Care Team Providers Care Carbonation Equipment Operator Name Role Phone Janis Jain MD Primary Care Provider [phone] Brandon Walton MD Unavailable Janis Jain MD Unavailable [phone] Unknown, Provider Primary Care Provider Unavaila ble Janis Jain MD Primary Care Provider [phone] Rio Calle MD Primary Care Provider Encounter Details Date Type Department Care Team (Late st Contact Info) Description 08/08/2009 Clinic Encounter [facility] Pediatrics [address] [place] [address] Janis Jain MD [address] [place] [address] Social History Tobacco Use Types Packs/Day Years Used Date Smoking Tobacco: Never Alcohol Use Standard Drinks/Week Comments No 0 (1 standard drink = 0.6 oz pur e alcohol) Comments Unknown Sex and Gender Information Value Date Recorded Sex Assigned at Not on file Legal Sex Female 3:35 AM HEAD START DIRECTOR Gender Identity Female 02/07/2024 10:19 AM CDT Sexual Orientation Not on file documented as of this encounter Plan of Treatment Not on file documented as of this encounter Visit Diagnoses Not on filedocumented in this encounter Additional Health Concerns Infection Onset Date Last Indicated Resolved Time COVID-19 Rule Out 02/08/2020 02/08/2020 02/08/2020 2:45 PM CDT documented as of this encounter Care Teams Carbonation Equipment Operator Relationship Specialty Start Date End Date Janis Jian MD [address] [facility] [phone] PCP - General 09/04/08 04/03/20 Unknown, [place] [address] PCP - General 04/04/20 04/10/20 Janis Jain MD [address] [place] [address] [place] [phone] PCP - General Pediatrics 04/11/20 02/06/24 Rio Calle MD [address] [place] [address] [place] [phone] PCP - General Family Medicine 02/07/24 Brandon Walton MD [address] [facility] [address] [place] [address] 10/03/17 Janis Jain MD [address] [place] [address] [place] [phone] 10/03/17 documented as of this encounter Additional Source Comments PLEASE NOTE: Replies to this message will not be received.[facility]
--- OUTSIDE RECORDS SUMMARY | 2024-12-13 12:11 | XMS_ITS | Encounter Summary ---
Author Organization [facility] [employer] [facility] [employer] [facility] Address [address] [place] [address] Care Team Providers Care Product Technology Scientist Name Role Phone Janis Jain MD Primary Care Provider [phone] Brandon Walton MD Unavailable [phone] Janis Jain MD Unavailable [phone] Unknown, Provider Primary Care Provider Unavaila ble Janis Jain MD Primary Care Provider [phone] Rio Calle MD Primary Care Provider Encounter Details Date Type Department Care Team (Late st Contact Info) Description 09/18/2016 Historical Conversion [facility] [address] [place] [address] Fabrice Chris, PAC [address] [facility] [address] [place] [address] Social History Tobacco Use Types Packs/Day Years Used Date Smoking Tobacco: Never Smokeless Tobacco: Never Alcohol Use Standard Drinks/Week Comments No 0 (1 standard drink = 0.6 oz pur e alcohol) Comments No Sex and Gender Information Value Date Recorded Sex Assigned at Not on file Legal Sex Female 3:35 AM ACTIVE DIRECTORY SPECIALIST Gender Identity Female 02/07/2024 10:19 AM CDT Sexual Orientation Not on file documented as of this encounter Last Filed Vital Signs Vital Sign Reading Time Taken Comments Blood Pressure 110/72 09/18/2016 1:38 PM ACTIVE DIRECTORY SPECIALIST Pulse - - Temperature - - Respiratory Rate - - Oxygen Saturation - - Inhaled Oxygen Concentration - - Weight 49.2 kg (108 lb 8 oz) 09/18/2016 1:38 PM ACTIVE DIRECTORY SPECIALIST Height 165.1 cm (5' 5) 09/18/2016 1:38 PM ACTIVE DIRECTORY SPECIALIST Body Mass Index 18.06 09/18/2016 1:38 PM ACTIVE DIRECTORY SPECIALIST Body Mass Index Percentile 31.88% 09/18/2016 1:3 8 PM ACTIVE DIRECTORY SPECIALIST Growth Chart: [facility] (Girls, 2- 20 Years) documented in this [...] documented as of this encounter Care Teams Product Technology Scientist Relationship Specialty Start Date End Date Janis Jain MD [address] [place] [address] SURJIT GARCIA [phone] PCP - General 09/04/08 04/03/20 Unknown, Provider . SURJIT ROY [address] PCP - General 04/04/20 04/10/20 Janis Jain MD [address] [place] [address] SURJIT GARCIA [phone] PCP - General Pediatrics 04/11/20 02/06/24 Rio Calle MD [address] [place] [address] 120 SURJIT SMITH [phone] PCP - General Family Medicine 02/07/24 Brandon Walton MD [address] [facility] [address] [place] [address] 10/03/17 Janis Jain MD [address] [place] [address] SURJIT GARCIA [phone] 10/03/17 documented as of this encounter Additional Source Comments PLEASE NOTE: Replies to this message will not be received.[facility]
--- OUTSIDE RECORDS SUMMARY | 2024-12-13 12:11 | XMS_ITS | Encounter Summary ---
Author Organization [facility] [employer] [facility] Address [address] [place] [address] Care Team Providers Care Director Of Content And Programming Name Role Phone Janis Jain MD Primary Care Provider [phone] Brandon Walton MD Unavailable [phone] Janis Jain MD Unavailable Unknown, Provider Primary Care Provider Unavaila ble Janis Jain MD Primary Care Provider [phone] Rio Calle MD Primary Care Provider [phone] Encounter Details Date Type Department Care Team (Late st Contact Info) Description 07/07/2013 Historical Conversion [facility] [address] [place] [address] Ishan Erickson MD [address] [place] [phone] Social History Tobacco Use Types Packs/Day Years Used Date Smoking Tobacco: Never Alcohol Use Standard Drinks/Week Comments No 0 (1 standard drink = 0.6 oz pur e alcohol) Comments Unknown Sex and Gender Information Value Date Recorded Sex Assigned at Not on file Legal Sex Female 3:35 AM HAIR SPECIALIST Gender Identity Female 02/07/2024 10:19 AM CDT Sexual Orientation Not on file documented as of this encounter Last Filed Vital Signs Vital Sign Reading Time Taken Comments Blood Pressure 105/48 07/07/2013 3:59 PM CDT Pulse - - Temperature - - Respiratory Rate - - Oxygen Saturation - - Inhaled Oxygen Concentration - - Weight 32.4 kg (71 lb 8 oz) 07/07/2013 3:59 PM C DT Height 142.7 cm (4' 8.2) 07/07/2013 3:59 PM CDT Body Mass Index 15.92 07/07/2013 3:59 PM CDT Body Mass Index Percentile 26.24% 07/07/2013 3:5 9 PM CDT Growth Chart: [facility] (Girls, 2- 20 Years) documented in this encounter Plan of Treatment Not on file documented as of this encounter Visit Diagnoses Not on filedocumented in this encounter Additional Health Concerns Infection Onset Date Last Indicated Resolved Time COVID-19 Rule Out 02/08/2020 02/08/2020 02/08/2020 2:45 PM CDT documented as of this encounter Care Teams Director Of Content And Programming Relationship Specialty Start Date End Date Janis Jain MD [address] [place] [phone] PCP - General 09/04/08 04/03/20 Unknown, [place] [address] PCP - General 04/04/20 04/10/20 Janis Jain MD [address] [place] [phone] PCP - General Pediatrics 04/11/20 02/06/24 Rio Calle MD [address] [place] [address] [address] [place] [phone] PCP - General Family Medicine 02/07/24 Brandon Walton MD [address] [facility] [address] [place] [address] 10/03/17 Janis Jain MD [address] [place] [phone] 10/03/17 documented as of this encounter Additional Source Comments PLEASE NOTE: Replies to this message will not be received.[facility]
--- OUTSIDE RECORDS SUMMARY | 2024-12-13 12:11 | XMS_ITS | Clinical Summary ---
Author Organization [employer] [facility] Address [address] [place] [address] Care Team Providers Care Senior Sql Server Dba Name Role Phone None Primary Care Provider Unavailabl e Allergies No known active allergies Medications sertraline (ZOLOFT) 100 mg tablet Take 100 mg by mouth once daily. Active sertraline (ZOLOFT) 50 mg tablet Take 25 mg by mouth once daily. Active desog-e.estradi ol/e.estradiol (KARIVA, 28, ORAL) Take by mouth once daily. Patient unsure of dosage Active celecoxib (CELEBREX) 200 mg capsuleIndicati ons:Neuritis of left ulnar nerve Take 1 Capsule (200 mg) by mouth two times daily with meals. 36 Capsule 1 11/04/2023 Active Active Problems No known active problems Encounters Date Type Department Care Team Description 12/04/2024 Telephone [facility] [address] [place] [address] Lee Miramontes MD Imaging (MRI ORDER ) 11/26/2024 9:45 AM CDT Ancillary Procedure [facility] [address] [place] [address] 11/26/2024 Travel from Last 3 Months Social History Tobacco Use Types Packs/Day Years Used Date Smoking Tobacco: Never Smokeless Tobacco: Never Alcohol Use Standard Drinks/Week Comments Never 0 (1 standard drink = 0.6 oz pur e alcohol) Comments No Sex and Gender Information Value Date Recorded Sex Assigned at Not on file Legal Sex Female 5:08 PM SUPERVISOR LACE TEARING Gender Identity Not on file Sexual Orientation Not on file Obstetrics History Last Filed Vital Signs Vital Sign Reading Time Taken Comments Blood Pressure 130/70 06/20/2022 3:49 PM CDT Pulse 54 06/20/2022 3:49 PM CDT Temperature 36.8 C (98.2 F) 10/27/2021 5:16 PM SUPERVISOR LACE TEARING Respiratory Rate 16 06/20/2022 3:49 PM CDT Oxygen Saturation 100% 06/20/2022 3:49 PM CDT Inhaled Oxygen Concentration - - Weight 61.3 kg (135 lb 3.2 oz) 10/27/2021 5:16 P M SUPERVISOR LACE TEARING Height 170.2 cm (5' 7) 10/27/2021 5:16 PM SUPERVISOR LACE TEARING Body Mass Index 21.18 10/27/2021 5:16 PM SUPERVISOR LACE TEARING Plan of Treatment Health Maintenance Due Date Last Done Comments Tdap 2013 Depression screening for age 12+ 2014 HIV for age 15-65 2017 HPV series for age 9-26 (1 - 3-dose series) 2017 BMI (ht and wt on same day) for age 18+ 2020 Hepatitis C screening for ag e 18-79 2020 Tetanus booster 2022 Pap test for age 21-65 2023 COVID-19 vaccine series ( season) 2024 09/02/2021, 12/25/2020, 12/04/2020 Influenza Vaccine (Season Ended) 2025 Pneumococcal series for age 6-49 Aged Out No longer eligible b ased on patient's age to complete this topic Procedures Procedure Name Priority Date/Time Associated Diagnosis Comments XR SHOULDER 3 VIEWS RIGHT Routine 11/26/2024 9:44 AM CDT Chronic right shoulder pain from Last 3 Months Results * XR SHOULDER 3 VIEWS RIGHT (11/26/2024 9:44 AM CDT) Anatomical Region Laterality Modality SHOULDERS, SHOULDER R Computed R adiography 11/26/2024 4:03 PM CDT Narrative 11/26/2024 4:03 PM CDT For Patients: As a result of the Cures Act, medical imaging exams and procedure reports are released immediately into your electronic medical record. You may view this report before your referring provider. If you have questions, please contact your health care provider. Indication: Chronic shoulder pain. Technique: Three views of the right shoulder. Comparison: None. Findings: There is widening and subluxation of the acromioclavicular joint consistent with a grade 2 sprain. The glenohumeral joint space is preserved. The humeral acromial space is unremarkable. Bone density is normal. No fracture or osteonecrosis is identified. The right shoulder soft tissues are normal. Impression: Grade 2 sprain of the acromioclavicular joint. Dictated by Nathan Salinas MD @ 11/26/2024 4:03:14 PM (Electronically Signed) Procedure Note Nathan Salinas MD - 11/26/2024 For Patients: As a result of the Cures Act, medical imagingexams and procedure reports are released immediately into your electronicmedical record. You may view this report before your referring provider.If you have questions, please contact your health care provider. Indication: Chronic shoulder pain. Technique: Three views of the right shoulder. Comparison: None. Findings: There is widening and subluxation of the acromioclavicular jointconsistent with a grade 2 sprain. The glenohumeral joint space ispreserved. The humeral acromial space is unremarkable. Bone density isnormal. No fracture or osteonecrosis is identified. The right shouldersoft tissues are normal. Impression: Grade 2 sprain of the acromioclavicular joint. Dictated by Nathan Salinas MD @ 11/26/2024 4:03:14 PM (Electronically Signed) Lee Miramontes MD GENERAL IMAGING Final Res ult from Last 3 Months Insurance [facility] Care Teams Senior Sql Server Dba Relationship Specialty Start Date End Date None . PCP - General 11/26/24
--- OUTSIDE RECORDS SUMMARY | 2024-12-13 12:11 | XMS_ITS | Encounter Summary ---
Author Organization [facility] Address [address] [place] [address] Care Team Providers Care Gearcase Assembler Name Role Phone Janis Jain MD Primary Care Provider [phone] Brandon Walton MD Unavailable [phone] Janis Jain MD Unavailable [phone] Unknown, Provider Primary Care Provider Unavaila ble Janis Jain MD Primary Care Provider [phone] Rio Calle MD Primary Care Provider [phone] Encounter Details Date Type Department Care Team (Late st Contact Info) Description 02/20/[address] [address] Social History Tobacco Use Types Packs/Day Years Used Date Smoking Tobacco: Never Assessed Comments Unknown Sex and Gender Information Value Date Recorded Sex Assigned at Not on file Legal Sex Female 3:35 AM STEFFEN HOUSE SUPERVISOR Gender Identity Female 02/07/2024 10:19 AM CDT Sexual Orientation Not on file documented as of this encounter Procedure Notes * DARNELL, SCAN - 02/20/2006 8:03 PM CDTAssociated Order(s): OUTSIDE RADIOLOGY - S documented in this encounter Plan of Treatment Not on file documented as of this encounter Procedures Procedure Name Priority Date/Time Associated Diagnosis Comments OUTSIDE RADIOLOGY - S 02/20/2006 8:03 PM CDT documented in this encounter Results * OUTSIDE RADIOLOGY - S (02/20/2006 8:03 PM CDT) Anatomical Region Laterality Modality Other Narrative Procedure Note DARNELL, SCAN - 02/20/2006 8:03 PM CDT us Scan Darnell PROCEDURE NOTE Final Result documented in this encounter Visit Diagnoses Not on filedocumented in this encounter Additional Health Concerns Infection Onset Date Last Indicated Resolved Time COVID-19 Rule Out 02/08/2020 02/08/2020 02/08/2020 2:45 PM CDT documented as of this encounter Care Teams Gearcase Assembler Relationship Specialty Start Date End Date Janis Jain MD [address] [place] [phone] PCP - General 09/04/08 04/03/20 Unknown, [place] [address] PCP - General 04/04/20 04/10/20 Janis Jain MD [address] [place], [place] [address] [phone] PCP - General Pediatrics 04/11/20 02/06/24 Rio Calle MD [address] [place] [address] 120 [place] [phone] PCP - General Family Medicine 02/07/24 Brandon Walton MD [address] [facility] [address] [place] [address] 10/03/17 Janis Jain MD [address] [place] [address] [place] [phone] 10/03/17 documented as of this encounter Additional Source Comments PLEASE NOTE: Replies to this message will not be received.[facility] and [facility]
--- OUTSIDE RECORDS SUMMARY | 2024-12-13 12:11 | XMS_ITS | Encounter Summary ---
Author Organization [facility] Address [address] [place] [address] Care Team Providers Care Beta Tester Name Role Phone Janis Jain MD Primary Care Provider [phone] Brandon Walton MD Unavailable Janis Jain MD Unavailable [phone] Unknown, Provider Primary Care Provider Unavaila ble Janis Jain MD Primary Care Provider Rio Calle MD Primary Care Provider [phone] Encounter Details Date Type Department Care Team (Late st Contact Info) Description 09/21/[address] [address] Social History Tobacco Use Types Packs/Day Years Used Date Smoking Tobacco: Never Assessed Comments Unknown Sex and Gender Information Value Date Recorded Sex Assigned at Not on file Legal Sex Female 3:35 AM MACHINE MAINTENANCE REPAIRER Gender Identity Female 02/07/2024 10:19 AM CDT Sexual Orientation Not on file documented as of this encounter Procedure Notes * ARJUN HARDING - 09/21/2007 12:03 PM CSTAssociated Order(s): OUTSIDE LABS - S documented in this encounter Plan of Treatment Not on file documented as of this encounter Procedures Procedure Name Priority Date/Time Associated Diagnosis Comments OUTSIDE LABS - S 09/21/2007 12:0 3 PM MACHINE MAINTENANCE REPAIRER documented in this encounter Results * OUTSIDE LABS - S (09/21/2007 12:03 PM MACHINE MAINTENANCE REPAIRER) Narrative Procedure Note DARNELL, SCAN - 09/21/2007 12:03 PM CST us Scan Darnell PROCEDURE NOTE Final Result documented in this encounter Visit Diagnoses Not on filedocumented in this encounter Additional Health Concerns Infection Onset Date Last Indicated Resolved Time COVID-19 Rule Out 02/08/2020 02/08/2020 02/08/2020 2:45 PM CDT documented as of this encounter Care Teams Beta Tester Relationship Specialty Start Date End Date Janis Jain MD [address] [place] [address] [place] [phone] PCP - General 09/04/08 04/03/20 Unknown, Provider . [facility] [place] [address] PCP - General 04/04/20 04/10/20 Janis Jain MD [address] [place] [address] [place] [phone] PCP - General Pediatrics 04/11/20 02/06/24 Rio Calle MD [address] [place] [address] [address] [place] [phone] PCP - General Family Medicine 02/07/24 Brandon Walton MD [address] [facility] [address] [place] [address] 10/03/17 Janis Jain MD [address] [place] [address] SURJIT GARCIA [phone] 10/03/17 documented as of this encounter Additional Source Comments PLEASE NOTE: Replies to this message will not be received.[facility]
--- OUTSIDE RECORDS SUMMARY | 2024-12-13 12:11 | XMS_ITS | Encounter Summary ---
Author Organization [facility] [employer] [facility] Address [address] [place] [address] Care Team Providers Care Electrical Design Engineer Name Role Phone Janis Jain MD Primary Care Provider [phone] Brandon Walton MD Unavailable Janis Jain MD Unavailable [phone] Unknown, Provider Primary Care Provider Unavaila ble Janis Jain MD Primary Care Provider [phone] Rio Calle MD Primary Care Provider [phone] Encounter Details Date Type Department Care Team (Late st Contact Info) Description 06/06/2009 Clinic Encounter [facility] [address] [place] [address] Janis Jain MD [address] [place] [address] Social History Tobacco Use Types Packs/Day Years Used Date Smoking Tobacco: Never Alcohol Use Standard Drinks/Week Comments No 0 (1 standard drink = 0.6 oz pur e alcohol) Comments Unknown Sex and Gender Information Value Date Recorded Sex Assigned at Not on file Legal Sex Female 3:35 AM SEAT PACK INSPECTOR Gender Identity Female 02/07/2024 10:19 AM CDT Sexual Orientation Not on file documented as of this encounter Plan of Treatment Not on file documented as of this encounter Visit Diagnoses Not on filedocumented in this encounter Additional Health Concerns Infection Onset Date Last Indicated Resolved Time COVID-19 Rule Out 02/08/2020 02/08/2020 02/08/2020 2:45 PM CDT documented as of this encounter Care Teams Electrical Design Engineer Relationship Specialty Start Date End Date Janis Jain MD [address] [place] [phone] PCP - General 09/04/08 04/03/20 Unknown, [place] [address] PCP - General 04/04/20 04/10/20 Janis Jain MD [address] [place] [address] [place] [phone] PCP - General Pediatrics 04/11/20 02/06/24 Rio Calle MD [address] [place] [address] [address] [place] [phone] PCP - General Family Medicine 02/07/24 Brandon Walton MD [address] [facility] [address] [place] [address] 10/03/17 Janis Jain MD [address] [place] [address] [place] [phone] 10/03/17 documented as of this encounter Additional Source Comments PLEASE NOTE: Replies to this message will not be received.[facility]
--- NOTE | 2024-12-13 13:09 | CRLHL7_ITS ---
For Patients: As a result of the Century Cures Act, medical imaging exams and procedure reports are released immediately into your electronic medical record. You may view this report before your referring provider. If you have questions, please contact your health care provider. This report is included with the MRI brain. Dictated by Adeline Jo MD @ 12/13/2024 5:19:59 PM (Electronically Signed)
--- NOTE | 2024-12-13 13:09 | CRLHL7_ITS ---
For Patients: As a result of the Century Cures Act, medical imaging exams and procedure reports are released immediately into your electronic medical record. You may view this report before your referring provider. If you have questions, please contact your health care provider. This report is included with MRI brain. Dictated by Adeline Jo MD @ 12/13/2024 5:19:36 PM (Electronically Signed)
--- NOTE | 2024-12-13 13:09 | CRLHL7_ITS ---
For Patients: As a result of the Century Cures Act, medical imaging exams and procedure reports are released immediately into your electronic medical record. You may view this report before your referring provider. If you have questions, please contact your health care provider. Indication: Headaches Technique: MRI Head: performed before and after IV contrast. MRA Head: performed without IV contrast. MRA Neck: performed before and after IV contrast. Gadolinium-based contrast agent: 15 mL Dotarem IV contrast. Comparison: None. Findings: MRI Head: No evidence for recent or remote infarct or hemorrhage. No intracranial mass effect. No ventricular obstruction. Normal white matter signal. No suspicious intracranial enhancement. No obstructive paranasal sinus disease or mastoid effusion. Unremarkable orbits. MRA Head: The intracranial segments of the internal carotid arteries and basilar artery are widely patent. The anterior, middle and posterior cerebral arteries and proximal branches are unremarkable. No aneurysm or high-flow AV malformation. No high-grade stenosis. MRA Neck: The bilateral common carotid arteries, internal and external carotid arteries are widely patent. No stenosis near the common carotid bifurcations. Bilateral chordoma vertebral arteries also appear widely patent. Impression: MRI Head: 1. Unremarkable MRI brain. No evidence of acute intracranial abnormality. MRA Head: 1. No proximal arterial occlusion, high-grade stenosis, aneurysm or high-flow vascular malformation. MRA Neck: 1. No evidence for hemodynamically significant stenosis or dissection in the neck. Dictated by Adeline Jo MD @ 12/13/2024 5:19:13 PM (Electronically Signed)
[2024-12-13] MEDS: METOCLOPRAMIDE HCL 5 MG/ML INJ 10 MG IVP (13:42)
[2024-12-13] MEDS: KETOROLAC 15 MG/ML inj IVP (13:42)
[2024-12-13] MEDS: diphenhydrAMINE 50 MG/ML inj 12.5 MG IVP (13:43)
--- OUTSIDE RECORDS SUMMARY | 2024-12-13 13:46 | XMS_ITS | Encounter Summary ---
Author Organization [facility] [employer] [facility] Address [address] [place] [address] Care Team Providers Care Salvage Machine Operator Name Role Phone Janis Jain MD Primary Care Provider [phone] Brandon Walton MD Unavailable [phone] Janis Jain MD Unavailable [phone] Unknown, Provider Primary Care Provider Unavaila ble Janis Jain MD Primary Care Provider [phone] Rio Calle MD Primary Care Provider [phone] Encounter Details Date Type Department Care Team (Late st Contact Info) Description 09/22/2016 Historical Conversion [facility] Family Medicine [address] [place] [address] Racquel Ashby, [place] Social History Tobacco Use Types Packs/Day Years Used Date Smoking Tobacco: Never Smokeless Tobacco: Never Alcohol Use Standard Drinks/Week Comments No 0 (1 standard drink = 0.6 oz pur e alcohol) Comments No Sex and Gender Information Value Date Recorded Sex Assigned at Not on file Legal Sex Female 3:35 AM DELIVERER OUTSIDE Gender Identity Female 02/07/2024 10:19 AM CDT Sexual Orientation Not on file documented as of this encounter Last Filed Vital Signs Vital Sign Reading Time Taken Comments Blood Pressure 99/57 09/22/2016 7:12 PM DELIVERER OUTSIDE Pulse - - Temperature - - Respiratory Rate - - Oxygen Saturation - - Inhaled Oxygen Concentration - - Weight 50 kg (110 lb 4 oz) 09/22/2016 7:12 PM CS T Height 163.3 cm (5' 4.3) 09/22/2016 7:12 PM DELIVERER OUTSIDE Body Mass Index 18.75 09/22/2016 7:12 PM DELIVERER OUTSIDE Body Mass Index Percentile 42.03% 09/22/2016 7:1 2 PM DELIVERER OUTSIDE Growth Chart: [facility] [place] (Girls, 2- 20 Years) documented in this encounter Functional Status * Are you deaf or do you have serious difficulty hearing? Answer Date of Assessment Author No 01/28/2014 12:36 PM CDT Mahogany Bhakta LPN * Are you blind or do you have serious difficulty seeing, even when wearing glasses? Answer Date of Assessment Author No 01/28/2014 12:36 PM CDT Mahogany Bhakta, JEWEL FLAT SURFACER * Do you have serious difficulty walking or climbing stairs? Answer Date of Assessment Author No 01/28/2014 12:36 PM CDT Mahogany Bhakta, JEWEL FLAT SURFACER * Do you have difficulty dressing or bathing? Answer Date of Assessment Author No 01/28/2014 12:36 PM CDT Mahogany Bhakta, JEWEL FLAT SURFACER * Do you have difficulty doing errands alone such as visiting a doctor's office or shopping because of a physical, mental, or emotional condition? Answer Date of Assessment Author No 01/28/2014 12:36 PM CDT Mahogany Bhakta, JEWEL FLAT SURFACER documented as of this encounter Mental Status * Do you have trouble concentrating, remembering, or making decisions because of a physical, mental, or emotional condition? Answer Entry Date Author No 01/28/2014 12:36 PM CDT Mahogany Bhakta, JEWEL FLAT SURFACER documented in this encounter Plan of Treatment Not on file documented as of this encounter Visit Diagnoses Not on filedocumented in this encounter Additional Health Concerns Infection Onset Date Last Indicated Resolved Time COVID-19 Rule Out 02/08/2020 02/08/2020 02/08/2020 2:45 PM CDT documented as of this encounter Care Teams Salvage Machine Operator Relationship Specialty Start Date End Date Janis Jain MD [address] [place] [address] SURJIT GARCIA [phone] PCP - General 09/04/08 04/03/20 Unknown, Provider . [place] [address] PCP - General 04/04/20 04/10/20 Janis Jain MD [address] [place] [phone] PCP - General Pediatrics 04/11/20 02/06/24 Rio Calle MD [address] [place] [address] 120 [place] [phone] PCP - General Family Medicine 02/07/24 Brandon Walton MD [address] [facility] [address] [place] [address] 10/03/17 Janis Jain MD [address] [place] [phone] 10/03/17 documented as of this encounter Additional Source Comments PLEASE NOTE: Replies to this message will not be received.[facility] and [facility]
--- OUTSIDE RECORDS SUMMARY | 2024-12-13 13:46 | XMS_ITS | Encounter Summary ---
Author Organization [facility] [employer] Aff[facility]ates Address [address] [place] [address] Care Team Providers Care Basket Filler Name Role Phone Janis Jain MD Primary Care Provider [phone] Brandon Walton MD Unavailable [phone] Janis Jain MD Unavailable [phone] Unknown, Provider Primary Care Provider Unavaila ble Janis Jain MD Primary Care Provider [phone] Rio Calle MD Primary Care Provider [phone] Encounter Details Date Type Department Care Team (Late st Contact Info) Description 09/22/2016 Historical Conversion [address] [address] Racquel Ashby, [place] Social History Tobacco Use Types Packs/Day Years Used Date Smoking Tobacco: Never Smokeless Tobacco: Never Alcohol Use Standard Drinks/Week Comments No 0 (1 standard drink = 0.6 oz pur e alcohol) Comments No Sex and Gender Information Value Date Recorded Sex Assigned at Not on file Legal Sex Female 3:35 AM HUB BORER Gender Identity Female 02/07/2024 10:19 AM CDT [...] No 01/28/2014 12:36 PM CDT Mahogany Bhakta, OLIVE KNOCKER * Do you have difficulty doing errands [...] documented as of this encounter Care Teams Basket Filler Relationship Specialty Start Date End Date Janis Jain MD [address] [place], [place] [address] [address] PCP - General 09/04/08 04/03/20 Unknown, [place] [address] PCP - General 04/04/20 04/10/20 Janis Jain MD [address] [place] [address] [place] [phone] PCP - General Pediatrics 04/11/20 02/06/24 Rio Calle MD [address] [place] [address] 120 [place] [address] PCP - General Family Medicine 02/07/24 Brandon Walton MD [address] [facility] [address] [place] [address] 10/03/17 Janis Jain MD [address] [place] [phone] 10/03/17 documented as of this encounter Additional Source Comments PLEASE NOTE: Replies to this message will not be received.[facility] and [facility]
--- OUTSIDE RECORDS SUMMARY | 2024-12-13 13:46 | XMS_ITS | Encounter Summary ---
Author Organization [facility] [employer] [facility]ates Address [address] [place] [address] Care Team Providers Care Floor Hand Name Role Phone Janis Jain MD Primary Care Provider [phone] Brandon Walton MD Unavailable [phone] Janis Jain MD Unavailable [phone] Unknown, Provider Primary Care Provider Unavaila ble Janis Jain MD Primary Care Provider Rio Calle MD Primary Care Provider [phone] Encounter Details Date Type Department Care Team (Late st Contact Info) Description 07/09/2012 Historical Conversion [facility] Family Medicine [address] [place] [address] Ishan Erickson MD [address], [place] [address] Social History Tobacco Use Types Packs/Day Years Used Date Smoking Tobacco: Never Alcohol Use Standard Drinks/Week Comments No 0 (1 standard drink = 0.6 oz pur e alcohol) Comments Unknown Sex and Gender Information Value Date Recorded Sex Assigned at Not on file Legal Sex Female 3:35 AM JAVA ENTERPRISE ARCHITECT Gender Identity Female 02/07/2024 10:19 AM CDT Sexual Orientation Not on file documented as of this encounter Last Filed Vital Signs Vital Sign Reading Time Taken Comments Blood Pressure - - Pulse - - Temperature - - Respiratory Rate - - Oxygen Saturation - - Inhaled Oxygen Concentration - - Weight 29.9 kg (66 lb) 07/09/2012 4:29 PM JAVA ENTERPRISE ARCHITECT Height 139.7 cm (4' 7) 07/09/2012 4:29 PM JAVA ENTERPRISE ARCHITECT Body Mass Index 15.34 07/09/2012 4:29 PM JAVA ENTERPRISE ARCHITECT Body Mass Index Percentile 24.33% 07/09/2012 4:2 9 PM JAVA ENTERPRISE ARCHITECT Growth Chart: [facility] (Girls, 2- 20 Years) documented in this encounter Plan of Treatment Not on file documented as of this encounter Visit Diagnoses Not on filedocumented in this encounter Additional Health Concerns Infection Onset Date Last Indicated Resolved Time COVID-19 Rule Out 02/08/2020 02/08/2020 02/08/2020 2:45 PM CDT documented as of this encounter Care Teams Floor Hand Relationship Specialty Start Date End Date Janis Jain MD [address] [place] [phone] PCP - General 09/04/08 04/03/20 Unknown, [place] [address] PCP - General 04/04/20 04/10/20 Janis Jain MD [address] [place] [phone] PCP - General Pediatrics 04/11/20 02/06/24 Rio Calle MD [address] [place] [address] [address] [place] [phone] PCP - General Family Medicine 02/07/24 Brandon Walton MD [address] [facility] [address] [place] [address] 10/03/17 Janis Jain MD [address] [place] [phone] 10/03/17 documented as of this encounter Additional Source Comments PLEASE NOTE: Replies to this message will not be received.[facility] and [facility]
--- OUTSIDE RECORDS SUMMARY | 2024-12-13 13:46 | XMS_ITS | Encounter Summary ---
Author Organization [facility] Address [address] [place] [address] Care Team Providers Care Financial Wellness Coach Name Role Phone Janis Jain MD Primary Care Provider [phone] Brandon Walton MD Unavailable [phone] Janis Jain MD Unavailable [phone] Unknown, Provider Primary Care Provider Unavaila ble Janis Jain MD Primary Care Provider [phone] Rio Calle MD Primary Care Provider [phone] Encounter Details Date Type Department Care Team (Late st Contact Info) Description 07/07/2013 Historical Conversion [facility] [address] [place] [address] Ishan Erickson MD [address] [place] [phone] Social History Tobacco Use Types Packs/Day Years Used Date Smoking Tobacco: Never Alcohol Use Standard Drinks/Week Comments No 0 (1 standard drink = 0.6 oz pur e alcohol) Comments Unknown Sex and Gender Information Value Date Recorded Sex Assigned at Not on file 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 [address] PCP - General 04/04/20 04/10/20 Janis Jain MD [address] [place] [phone] PCP - General Pediatrics 04/11/20 02/06/24 Rio Calle MD [address] [place] [address] 120 [place] [phone] PCP - General Family Medicine 02/07/24 Brandon Walton MD [address] [facility] [address] [place] [address] 10/03/17 Janis Jain MD [address] [place] [phone] 10/03/17 documented as of this encounter Additional Source Comments PLEASE NOTE: Replies to this message will not be received.[facility] and [facility]
--- OUTSIDE RECORDS SUMMARY | 2024-12-13 13:46 | XMS_ITS | Encounter Summary ---
Author Organization [facility] Address [address] [place] [address] Care Team Providers Care Transformer Repairer Name Role Phone Janis Jain MD Primary Care Provider [phone] Brandon Walton MD Unavailable [phone] Janis Jain MD Unavailable [phone] Unknown, Provider Primary Care Provider Unavaila ble Janis Jain MD Primary Care Provider [phone] Rio Calle MD Primary Care Provider Encounter Details Date Type Department Care Team (Late st Contact Info) Description 09/18/[address] [facility] [employer] [address] [place] [address] Fabrice Chris, PAC [address] [facility] [address] [place] [address] Social History Tobacco Use Types Packs/Day Years Used Date Smoking Tobacco: Never Smokeless Tobacco: Never Alcohol Use Standard Drinks/Week Comments No 0 (1 standard drink = 0.6 oz pur e alcohol) Comments No Sex and Gender Information Value Date Recorded Sex Assigned at Not on file Legal Sex Female 3:35 AM BI DEVELOPER Gender Identity Female 02/07/2024 10:19 AM CDT Sexual Orientation Not on file documented as of this encounter Last Filed Vital Signs Vital Sign Reading Time Taken Comments Blood Pressure 110/72 09/18/2016 1:38 PM BI DEVELOPER Pulse - - Temperature - - Respiratory Rate - - Oxygen Saturation - - Inhaled Oxygen Concentration - - Weight 49.2 kg (108 lb 8 oz) 09/18/2016 1:38 PM BI DEVELOPER Height 165.1 cm (5' 5) 09/18/2016 1:38 PM BI DEVELOPER Body Mass Index 18.06 09/18/2016 1:38 PM BI DEVELOPER Body Mass Index Percentile 31.88% 09/18/2016 1:3 8 PM BI DEVELOPER Growth Chart: [facility] (Girls, 2- 20 Years) documented in this [...] documented as of this encounter Care Teams Transformer Repairer Relationship Specialty Start Date End Date Janis Jain MD [address] [place] [address] SURJIT GARCIA [phone] PCP - General 09/04/08 04/03/20 Unknown, Provider . [place] ROY [address] PCP - General 04/04/20 04/10/20 Janis Jain MD [address] [place] [address] SURJIT GARCIA [phone] PCP - General Pediatrics 04/11/20 02/06/24 Rio Calle MD [address] [place] [address] 120 SURJIT SMITH [phone] PCP - General Family Medicine 02/07/24 Brandon Walton MD [address] [facility] [address] [place] [address] 10/03/17 Janis Jain MD [address] [place] [address] SURJIT GARCIA [phone] 10/03/17 documented as of this encounter Additional Source Comments PLEASE NOTE: Replies to this message will not be received.[facility] and [facility]
--- OUTSIDE RECORDS SUMMARY | 2024-12-13 13:46 | XMS_ITS | Referral Summary ---
Author Organization [employer] Address [address] [place] [address] Care Team Providers Care Collection Technician Name Role Phone Brandon Walton MD Unavailable [phone] Janis Jain MD Unavailable [phone] Rio Calle MD Primary Care Provider [...] Active fluticasone propionate (FLONASE) 50 mcg/actuation nasal [place], Suspension 1 [place] by nasal route in the morning. 06/22/20 [...] from your doctor or pharmacy? Never 02/15/2024 [facility] Utilities Answer Date Recorded In the [...] How often do you attend chur or holiness services? Never 02/15/2024 Do you belong to any clubs o r organizations such as lutheran groups, unions, fraternal or athletic groups, or [...] and heating? Not hard at all 02/15/2024 [facility] Occupat ional Health - Occupational Stress [...] were you homeless or living in a chcf (including now)? No 02/15/2024 Housing Stability Answer [...] any time in the past 12 m [facility], were you homeless or living in a chcf (including now)? 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 Gender Identity Female 02/07/2024 10:19 AM [...] Negative HOLOGIC PANTHER 02/16/2024 9:52 AM CDT [facility] Neisseria gonorrhoeae, NAAT Negative Negative HOLOGIC PANTHER 02/16/2024 9:52 AM CDT [facility] Swab ENDOCERVICAL STRUCTURE / Unknown Non-blood Collection / Unknown 02/15/2024 8:57 AM CDT 02/15/2024 9:34 AM CDT Narrative [facility] - 02/16/2024 9:52 AM CDT Methodology: RNA Target Amplification Veronica SHRESTHA LAB MOLECULAR O RDERABLES Final Result Performing Organization Address City/[facility]/ZIP Co de Phone Number [facility] [address] [place] [address], [place] [phone] * HEPATITIS C AB (02/07/2024 11:10 AM CDT) HCV Ab Nonreactive Nonreactive 02/07/2024 2:35 PM CDT [facility] Comment:Interpretation: Anti bodies to HCV were not detected; does not exclude the possibility of exposure to HCV. Blood VENOUS BLOOD / Unknown Venipuncture / Unknown 02/07/2024 11:10 AM CDT 02/07/2024 11:10 AM CDT Rio Calle MD LAB SEROLOGY ORDERABLES Final R esult Performing Organization Address City/[facility]/ZIP Co de Phone Number [facility] [address] [place] [address], [place] [phone] * HIV-1 AND HIV-2 AG AND AB (02/07/2024 11:10 AM CDT) HIV 1/2 Ab/Ag Nonreactive Nonreactive 2:33 PM CDT [facility] Blood VENOUS BLOOD / Unknown Venipuncture / Unknown 02/07/2024 11:10 AM CDT 02/07/2024 11:10 AM CDT Rio Calle MD LAB SEROLOGY ORDERABLES Final R esult [facility] [address] [place] [address], [place] [phone] * (ABNORMAL) PAP TEST (02/07/2024 10:55 AM CDT) Specimen Adequacy Satisfactory for evaluation: Endocervical component present. 4 10:01 AM T [facility] Interpretation Negative for intraepithelial lesion or malignancy. 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 10:01 AM T [facility] HPV Reflex? Reflex if ASCUS only 10:01 AM T [facility] Menstrual Status Having periods 10:01 AM [facility] Disclaimer/Infor mational Comment The Pap test is [...] additional confirmatory testing. 4 10:01 AM T [facility] Other CERVIX UTERI STRUCTURE / Unknown Non-blood Collection / Unknown 02/07/2024 10:55 AM CDT 02/07/2024 3:05 PM CDT us Rio Calle MD LAB CYTOLOGY ORDERABLES Final R esult [facility] [address] [place] [address], from Last 3 Months or Most Recently Relevant to Health Maintenance Insurance [facility] [employer] [facility] [employer] [facility] [employer] [facility] [employer] Care Teams Collection Technician Relationship Specialty Start Date End Date Rio Calle MD [address] [place] [address] [address] [place] [phone] PCP - General Family Medicine 02/07/24 Brandon Walton MD [address] [facility] [address] [place] [address] 10/03/17 Janis Jain MD [address] [place] [phone] 10/03/17 Additional Source Comments PLEASE NOTE: Replies to this message will not be received.[facility] and [facility]
--- OUTSIDE RECORDS SUMMARY | 2024-12-13 13:46 | XMS_ITS | Clinical Summary ---
Author Organization [employer] Address [address] [place] [address] Care Team Providers Care Machine Stripper Name Role Phone Brandon Walton MD Unavailable [phone] Janis Jain MD Unavailable [phone] Rio Calle MD Primary Care Provider [...] Active fluticasone propionate (FLONASE) 50 mcg/actuation nasal [place], Suspension 1 [place] by nasal route in the morning. 06/22/20 [...] from your doctor or pharmacy? Never 02/15/2024 [facility] Utilities Answer Date Recorded In the past 12 months has e Canines, gas, oil, or water [employer] threatened to shut off services in your [...] How often do you attend chur or adventist services? Never 02/15/2024 Do you belong to any clubs o r organizations such as zoroastrianism groups, unions, fraternal or athletic groups, or [...] and heating? Not hard at all 02/15/2024 [facility] of Occupat ional Health - Occupational Stress [...] any time in the past 12 m [facility], were you homeless or living in a detention (including now)? No 02/15/2024 Housing Stability Answer [...] any time in the past 12 m [facility], were you homeless or living in a detention (including now)? 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 Gender Identity Female 02/07/2024 10:19 AM CDT [...] Negative HOLOGIC PANTHER 02/16/2024 9:52 AM CDT [facility] Neisseria gonorrhoeae, NAAT Negative Negative [facility] 02/16/2024 9:52 AM CDT [facility] Swab ENDOCERVICAL STRUCTURE / Unknown Non-blood Collection / Unknown 02/15/2024 8:57 AM CDT 02/15/2024 9:34 AM CDT Narrative [facility] - 02/16/2024 9:52 AM CDT Methodology: RNA Target Amplification us Veronica SHRESTHA LAB MOLECULAR O RDERABLES Final Result [facility] [address] [place] [address], [place] [phone] * HEPATITIS C AB (02/07/2024 11:10 AM CDT) Pathologist [facility] HCV Ab Nonreactive Nonreactive 02/07/2024 2:35 PM CDT [facility] Comment:Interpretation: Anti bodies to HCV were not detected; does not exclude the possibility of exposure to HCV. Blood VENOUS BLOOD / Unknown Venipuncture / Unknown 02/07/2024 11:10 AM CDT 02/07/2024 11:10 AM CDT us Rio Calle MD LAB SEROLOGY ORDERABLES Final R esult [facility] [address] [place] [address], [place] [phone] * HIV-1 AND HIV-2 AG AND AB (02/07/2024 11:10 AM CDT) HIV 1/2 Ab/Ag Nonreactive Nonreactive 4 2:33 PM CDT [facility] Blood VENOUS BLOOD / Unknown Venipuncture / Unknown 02/07/2024 11:10 AM CDT 02/07/2024 11:10 AM CDT us Rio Calle MD LAB SEROLOGY ORDERABLES Final R esult [facility] [address] [place] [address], [place] [phone] * (ABNORMAL) PAP TEST (02/07/2024 10:55 AM CDT) Specimen Adequacy Satisfactory for evaluation: Endocervical component present. 4 10:01 AM T [facility] Interpretation Negative for intraepithelial lesion or malignancy. Negative 4 10:01 AM [facility] Other Findings Fungal organisms morphologically consistent with Geraldine spp.(A) Follicular cervicitis, Moderate acute and chronic inflammatio n., Moderate acute inflammatio n., Moderate chronic inflammatio n., Severe acute and chronic inflammatio n., Severe acute inflammatio n., Specimen has been reflexed for HPV testing, follow-up as... 4 10:01 AM T [facility] HPV Reflex? Reflex if ASCUS only 4 10:01 AM [facility] Menstrual Status Having periods / 10:01 AM T [facility] Disclaimer/Infor mational Comment The Pap test is [...] require additional confirmatory testing. 10:01 AM CDT [facility] Other CERVIX UTERI STRUCTURE / Unknown Non-blood Collection / Unknown 02/07/2024 10:55 AM CDT 02/07/2024 3:05 PM CDT us Rio Calle MD LAB CYTOLOGY ORDERABLES Final R esult [facility] [address] [place] [address], from Last 3 Months or Most Recently Relevant to Health Maintenance Insurance [facility] FEDERAL EM[employer]OYEES [facility] [employer]ES [facility] [employer] [facility] [employer] Care Teams Machine Stripper Relationship Specialty Start Date End Date Rio Calle MD [address] [place] [address] [address] [place] [phone] PCP - General Family Medicine 02/07/24 Brandon Walton MD [address] [facility] [address] [place] [address] 10/03/17 Janis Jain MD [address] [place] [phone] 10/03/17 Additional Source Comments PLEASE NOTE: Replies to this message will not be received.[facility] and [facility]
--- OUTSIDE RECORDS SUMMARY | 2024-12-13 13:46 | XMS_ITS | Encounter Summary ---
Author Organization [facility] [facility] Address [address] [place] [address] Care Team Providers Care Particle Board Supervisor Name Role Phone Janis Jain MD Primary Care Provider [phone] Brandon Walton MD Unavailable [phone] Janis Jain MD Unavailable [phone] Unknown, Provider Primary Care Provider Unavaila ble Janis Jain MD Primary Care Provider [phone] Rio Calle MD Primary Care Provider [phone] Encounter Details Date Type Department Care Team (Late st Contact Info) Description 08/22/2014 Historical Conversion [facility] Family Medicine [address] [place] [address] Alma Pearson MD [address] [facility] [address] [place] [address] Social History Tobacco Use Types Packs/Day Years Used Date Smoking Tobacco: Never Smokeless Tobacco: Never Alcohol Use Standard Drinks/Week Comments No 0 (1 standard drink = 0.6 oz pur e alcohol) Comments No Sex and Gender Information Value Date Recorded Sex Assigned at Not on file 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 Gender Identity Female 02/07/2024 10:19 AM CDT Sexual Orientation Not on file documented as of this encounter Last Filed Vital Signs Vital Sign Reading Time Taken Comments Blood Pressure 100/79 08/22/2014 8:45 PM GATE SHEAR OPERATOR Pulse - - Temperature - - Respiratory Rate - - Oxygen Saturation - - Inhaled Oxygen Concentration - - Weight 35.9 kg (79 lb 4 oz) 08/22/2014 8:[address] Height 148.6 cm (4' 10.5) 08/22/2014 8:45 PM CS T Body Mass Index 16.28 08/22/2014 8:45 PM GATE SHEAR OPERATOR Body Mass Index Percentile 22.56% 08/22/2014 8:4 5 PM GATE SHEAR OPERATOR Growth Chart: [facility] (Girls, 2- 20 Years) documented in this [...] documented as of this encounter Care Teams Particle Board Supervisor Relationship Specialty Start Date End Date Janis Jain MD [address] [place] [address] [place] [phone] PCP - General 09/04/08 04/03/20 Unknown, Provider . SURJIT ROY [address] PCP - General 04/04/20 04/10/20 Janis Jain MD [address] [place] [address] [place] [phone] PCP - General Pediatrics 04/11/20 02/06/24 Rio Calle MD [address] [place] [address] 120 SUR[place] SMITH [phone] PCP - General Family Medicine 02/07/24 Brandon Walton MD [address] [place] [address] [facility] [address] [place] [address] 10/03/17 Janis Jain MD [address] [place] [address] [place] [phone] 10/03/17 documented as of this encounter Additional Source Comments PLEASE NOTE: Replies to this message will not be received.[facility] and [facility]
--- OUTSIDE RECORDS SUMMARY | 2024-12-13 13:46 | XMS_ITS | Encounter Summary ---
Author Organization [facility] [employer] [facility] Address [address] [place] [address] Care Team Providers Care Sulfide Head Operator Name Role Phone Janis Jain MD Primary Care Provider [phone] Brandon Walton MD Unavailable [phone] Janis Jain MD Unavailable [phone] Unknown, Provider Primary Care Provider Unavaila ble Janis Jain MD Primary Care Provider [phone] Rio Calle MD Primary Care Provider [phone] Encounter Details Date Type Department Care Team (Late st Contact Info) Description 08/22/2014 Historical Conversion [facility] Family Medicine [address] [place] [address] Alma Pearson MD [address] [facility] [address] [place] [address] Social History Tobacco Use Types Packs/Day Years Used Date Smoking Tobacco: Never Smokeless Tobacco: Never Alcohol Use Standard Drinks/Week Comments No 0 (1 standard drink = 0.6 oz pur e alcohol) Comments No Sex and Gender Information Value Date Recorded Sex Assigned at Not on file 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 Answer Date of Assessment Author No 01/28/2014 12:36 PM CDT Mahogany Bhakta, TALENT COORDINATOR * Are you blind or do you have serious difficulty seeing, even when wearing glasses? Answer Date of Assessment Author No 01/28/2014 12:36 PM CDT Mahogany Bhakta, TALENT COORDINATOR * Do you have serious difficulty walking or climbing stairs? Answer Date of Assessment Author No 01/28/2014 12:36 PM CDT Mahogany Bhakta, TALENT COORDINATOR * Do you have difficulty dressing or bathing? Answer Date of Assessment Author No 01/28/2014 12:36 PM CDT Mahogany Bhakta, TALENT COORDINATOR * Do you have difficulty doing errands alone such as visiting a doctor's office or shopping because of a physical, mental, or emotional condition? Answer Date of Assessment Author No 01/28/2014 12:36 PM CDT Mahogany Bhakta, TALENT COORDINATOR documented as of this encounter Mental Status * Do you have trouble concentrating, remembering, or making decisions because of a physical, mental, or emotional condition? Answer Entry Date Author No 01/28/2014 12:36 PM CDT Mahogany Bhakta, TALENT COORDINATOR documented in this encounter Plan of Treatment Not on file documented as of this encounter Visit Diagnoses Not on filedocumented in this encounter Additional Health Concerns Infection Onset Date Last Indicated Resolved Time COVID-19 Rule Out 02/08/2020 02/08/2020 02/08/2020 2:45 PM CDT documented as of this encounter Care Teams Sulfide Head Operator Relationship Specialty Start Date End Date Janis Jain MD [address] [place] [phone] PCP - General 09/04/08 04/03/20 Unknown, Provider . SURJIT ROY [address] PCP - General 04/04/20 04/10/20 Janis Jain MD [address] [place] [address] [place] [phone] PCP - General Pediatrics 04/11/20 02/06/24 Rio Calle MD [address] [place] [address] 120 [place] [phone] PCP - General Family Medicine 02/07/24 Brandon Walton MD [address] [facility] [address] [place] [address] 10/03/17 Janis Jain MD [address] [place] [phone] 10/03/17 documented as of this encounter Additional Source Comments PLEASE NOTE: Replies to this message will not be received.[facility] and [facility]
--- OUTSIDE RECORDS SUMMARY | 2024-12-13 13:47 | XMS_ITS | Encounter Summary ---
Author Organization [facility] [employer] [facility] Address [address] [place] [address] Care Team Providers Care Grooving Lathe Tender Name Role Phone Janis Jain MD Primary Care Provider [phone] Brandon Walton MD Unavailable [phone] Janis Jain MD Unavailable [phone] Unknown, Provider Primary Care Provider Unavaila ble Janis Jain MD Primary Care Provider [phone] Rio Calle MD Primary Care Provider Encounter Details Date Type Department Care Team (Late st Contact Info) Description 08/08/2009 Clinic Encounter [facility] Pediatrics [address] [place] [address] Janis Jain MD [address] [place] [address] Social History Tobacco Use Types Packs/Day Years Used Date Smoking Tobacco: Never Alcohol Use Standard Drinks/Week Comments No 0 (1 standard drink = 0.6 oz pur e alcohol) Comments Unknown Sex and Gender Information Value Date Recorded Sex Assigned at Not on file 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 [place] [phone] PCP - General 09/04/08 04/03/20 Unknown, [place] [address] PCP - General 04/04/20 04/10/20 Janis Jain MD [address] [place] [address] [place] [phone] PCP - General Pediatrics 04/11/20 02/06/24 Rio Calle MD [address] [place] [address] [place] [phone] PCP - General Family Medicine 02/07/24 Brandon Walton MD [address] [facility] [address] [place] [address] 10/03/17 Janis Jain MD [address] [place] [address] [place] [phone] 10/03/17 documented as of this encounter Additional Source Comments PLEASE NOTE: Replies to this message will not be received.[facility]
--- OUTSIDE RECORDS SUMMARY | 2024-12-13 13:47 | XMS_ITS | Encounter Summary ---
Author Organization [facility] Address [address] [place] [address] Care Team Providers Care Liquefier Name Role Phone Janis Jain MD Primary Care Provider [phone] Brandon Walton MD Unavailable [phone] Janis Jain MD Unavailable [phone] Unknown, Provider Primary Care Provider Unavaila ble Janis Jain MD Primary Care Provider [phone] Rio Calle MD Primary Care Provider [phone] Encounter Details Date Type Department Care Team (Late st Contact Info) Description 02/20/[address] [address] Social History Tobacco Use Types Packs/Day Years Used Date Smoking Tobacco: Never Assessed Comments Unknown Sex and Gender Information Value Date Recorded Sex Assigned at Not on file 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 [address] PCP - General 04/04/20 04/10/20 Janis Jain MD [address] [place], [place] [address] [phone] PCP - General Pediatrics 04/11/20 02/06/24 Rio Calle MD [address] [place] [address] [place] [phone] PCP - General Family Medicine 02/07/24 Brandon Walton MD [address] [facility] [address] [place] [address] 10/03/17 Janis Jain MD [address] [place] [address] [place] [phone] 10/03/17 documented as of this encounter Additional Source Comments PLEASE NOTE: Replies to this message will not be received.[facility] and [facility]
--- OUTSIDE RECORDS SUMMARY | 2024-12-13 13:47 | XMS_ITS | Encounter Summary ---
Author Organization [facility] [employer] [facility] Address [address] [place] [address] Care Team Providers Care Air Defense Artillery Officer Name Role Phone Janis Jain MD Primary Care Provider [phone] Brandon Walton MD Unavailable [phone] Janis Jain MD Unavailable [phone] Unknown, Provider Primary Care Provider Unavaila ble Janis Jain MD Primary Care Provider [phone] Rio Calle MD Primary Care Provider [phone] Encounter Details Date Type Department Care Team (Late st Contact Info) Description 09/21/[address] [address] Social History Tobacco Use Types Packs/Day Years Used Date Smoking Tobacco: Never Assessed Comments Unknown Sex and Gender Information Value Date Recorded Sex Assigned at Not on file Legal Sex Female 3:35 AM DYNAMICS AX CONSULTANT Gender Identity Female 02/07/2024 10:19 AM CDT Sexual Orientation Not on file documented as of this encounter Procedure Notes * ARJUN HARDING - 09/21/2007 12:03 PM CSTAssociated Order(s): OUTSIDE LABS - S documented in this encounter Plan of Treatment Not on file documented as of this encounter Procedures Procedure Name Priority Date/Time Associated Diagnosis Comments OUTSIDE LABS - S 09/21/2007 12:0 3 PM DYNAMICS AX CONSULTANT documented in this encounter Results * OUTSIDE LABS - S (09/21/2007 12:03 PM DYNAMICS AX CONSULTANT) Narrative Procedure Note DARNELL, SCAN - 09/21/2007 12:03 PM CST us Scan Darnell PROCEDURE NOTE Final Result documented in this encounter Visit Diagnoses Not on filedocumented in this encounter Additional Health Concerns Infection Onset Date Last Indicated Resolved Time COVID-19 Rule Out 02/08/2020 02/08/2020 02/08/2020 2:45 PM CDT documented as of this encounter Care Teams Air Defense Artillery Officer Relationship Specialty Start Date End Date Janis Jain MD [address] [place] [address] [place] [phone] PCP - General 09/04/08 04/03/20 Unknown, Provider . [facility] [place] [address] PCP - General 04/04/20 04/10/20 Janis Jain MD [address] [place] [address] [place] [phone] PCP - General Pediatrics 04/11/20 02/06/24 Rio Calle MD [address] [place] [address] [address] [place] [phone] PCP - General Family Medicine 02/07/24 Brandon Walton MD [address] [facility] [address] [place] [address] 10/03/17 Janis Jain MD [address] [place] [address] SURJIT GARCIA [phone] 10/03/17 documented as of this encounter Additional Source Comments PLEASE NOTE: Replies to this message will not be received.[facility] and [facility]
--- OUTSIDE RECORDS SUMMARY | 2024-12-13 13:47 | XMS_ITS | Encounter Summary ---
Author Organization [facility] [employer] [facility] Address [address] [place] [address] Care Team Providers Care Residency Director Name Role Phone Janis Jain MD Primary Care Provider [phone] Brandon Walton MD Unavailable [phone] Janis Jain MD Unavailable [phone] Unknown, Provider Primary Care Provider Unavaila ble Janis Jain MD Primary Care Provider [phone] Rio Calle MD Primary Care Provider Encounter Details Date Type Department Care Team (Late st Contact Info) Description 06/06/2009 Clinic Encounter [facility] Pediatrics [address] [place] [address] Janis Jain MD [address] [place] [address] Social History Tobacco Use Types Packs/Day Years Used Date Smoking Tobacco: Never Alcohol Use Standard Drinks/Week Comments No 0 (1 standard drink = 0.6 oz pur e alcohol) Comments Unknown Sex and Gender Information Value Date Recorded Sex Assigned at Not on file Legal Sex Female 3:35 AM PACKING CHECKER Gender Identity Female 02/07/2024 10:19 AM CDT Sexual Orientation Not on file documented as of this encounter Plan of Treatment Not on file documented as of this encounter Visit Diagnoses Not on filedocumented in this encounter Additional Health Concerns Infection Onset Date Last Indicated Resolved Time COVID-19 Rule Out 02/08/2020 02/08/2020 02/08/2020 2:45 PM CDT documented as of this encounter Care Teams Residency Director Relationship Specialty Start Date End Date Janis Jain MD [address] [facility] [place] [phone] PCP - General 09/04/08 04/03/20 Unknown, [place] [address] PCP - General 04/04/20 04/10/20 Janis Jain MD [address] [place] [address] [place] [phone] PCP - General Pediatrics 04/11/20 02/06/24 Rio Calle MD [address] [place] [address] [place] [phone] PCP - General Family Medicine 02/07/24 Brandon Walton MD [address] [facility] [address] [place] [address] 10/03/17 Janis Jain MD [address] [place] [address] [place] [phone] 10/03/17 documented as of this encounter Additional Source Comments PLEASE NOTE: Replies to this message will not be received.[facility]
--- OUTSIDE RECORDS SUMMARY | 2024-12-13 13:47 | XMS_ITS | Clinical Summary ---
Author Organization [employer] [facility] Address [address] [place] [address] Care Team Providers Care Video Tape Duplicator Name Role Phone None Primary Care Provider [...] Type Department Care Team Description 12/04/2024 Telephone [facility] [address] [place] [address] Lee Miramontes MD Imaging (MRI ORDER ) 11/26/2024 9:45 AM CDT Ancillary Procedure [facility] [address] [place] [address] 11/26/2024 Travel from Last 3 Months Social History Tobacco Use Types Packs/Day Years Used Date Smoking Tobacco: Never Smokeless Tobacco: Never Alcohol Use Standard Drinks/Week Comments Never 0 (1 standard drink = 0.6 oz pur e alcohol) Comments No Sex and Gender Information Value Date Recorded Sex Assigned at Not on file Legal Sex Female 5:08 PM LOAN APPROVER Gender Identity Not on file Sexual Orientation Not on file Obstetrics History Last Filed Vital Signs Vital Sign Reading Time Taken Comments Blood Pressure 130/70 06/20/2022 3:49 PM CDT Pulse 54 06/20/2022 3:49 PM CDT Temperature 36.8 C (98.2 F) 10/27/2021 5:16 PM LOAN APPROVER Respiratory Rate 16 06/20/2022 3:49 PM CDT Oxygen Saturation 100% 06/20/2022 3:49 PM CDT Inhaled Oxygen Concentration - - Weight 61.3 kg (135 lb 3.2 oz) 10/27/2021 5:16 P M LOAN APPROVER Height 170.2 cm (5' 7) 10/27/2021 5:16 PM LOAN APPROVER Body Mass Index 21.18 10/27/2021 5:16 PM LOAN APPROVER Plan of Treatment Health Maintenance Due Date [...] Res ult from Last 3 Months Insurance [facility] [employer] Care Teams Video Tape Duplicator Relationship Specialty Start Date End Date None . PCP - General 11/26/24
[2024-12-13 14:27] LABS: HCG Qualitative Serum* Negative (Negative)
== END 2024-12-13 18:07 | disposition home or self-care (01) ==
PROVIDERS: Emergency Provider Emergency Medicine
DX: R51.9 Headache, unspecified (principal); M79.2 Neuralgia and neuritis, unspecified
CPT/HCPCS: 36415; 70544; 70549; 70553; 84703; 96374; 96375; 99283; 99284; 99285; A9575; J1200; J1885; J2765

== ENCOUNTER 2024-12-27 07:56 | Outpatient (CLI) | payer BC, OTHER, SELFPAY ==
--- NOTE | 2024-12-27 08:15 | CRLHL7_ITS ---
For Patients: As a result of the Century Cures Act, medical imaging exams and procedure reports are released immediately into your electronic medical record. You may view this report before your referring provider. If you have questions, please contact your health care provider. Indication: Right shoulder pain. Comparison: None. Procedure : Informed consent was obtained. The site was marked. Time-out was performed. The skin of the right shoulder was cleansed with ChloraPrep. A sterile drape was placed. 8 cc of 1 percent lidocaine was administered for superficial anesthesia. Subsequently a 22 gauge spinal needle was introduced into the right shoulder joint under intermittent fluoroscopic guidance. Injection of 2 cc nonionic Omnipaque 240 contrast confirmed intra-articular location. Subsequently 11 cc of dilute gadolinium were injected. The needle was removed and hemostasis achieved with direct pressure. A dressing was placed. The patient tolerated the procedure well without immediate complication and was immediately sent to MRI for imaging. Total fluoroscopy time 0.31 minutes. Impression: Successful fluoroscopically guided right shoulder arthrogram for MRI. Dictated by Sumeet Tsai MD @ 12/27/2024 9:16:39 AM (Electronically Signed)
--- NOTE | 2024-12-27 09:15 | CRLHL7_ITS ---
For Patients: As a result of the Century Cures Act, medical imaging exams and procedure reports are released immediately into your electronic medical record. You may view this report before your referring provider. If you have questions, please contact your health care provider. CLINICAL INDICATION: Chronic right shoulder pain. Hockey injury. Fall on outstretched arm. COMPARISON IMAGING STUDIES: Fluoroscopic spot film from 12/27/2024. TECHNICAL: MR arthrogram right shoulder with contrast. Axial, sagittal oblique and coronal oblique T1 FS, PD FS and DI-H1-spoguyeo images. 1.5 Estela MR scanner. Shoulder surface coil. 0.1 mL Dotarem gadolinium within dilute gadolinium solution injected intra-articular. FINDINGS: GLENOHUMERAL JOINT: Humeral Head Articular Cartilage: Maintained. No Hill-Sachs lesion. Glenoid Articular Cartilage: Maintained. Loose Bodies: None seen. Glenoid Labrum, Glenohumeral Ligaments and Capsule: The superior labrum is intact without SLAP tear. The anterior inferior labrum is intact without Bankart or Bankart variant labral tear. Posterior through posteroinferior labrum intact.Glenohumeral ligaments are intact. Alignment: Maintained. OSSEOUS STRUCTURES: No acute fracture. No avascular necrosis. CORACOACROMIAL ARCH: Acromial Morphology: Type 2 acromial morphology. No excessive lateral or anterior downward sloping of the acromion. No os acromiale. No significant subacromial spur. Lateral acromial thickness is 7 mm. Acromiohumeral Interval: At its narrowest, the interval measures 5 mm. Coracohumeral Interval: At its narrowest, the coracohumeral interval measures 10 mm. Coracoid index is 7 mm. ACROMIOCLAVICULAR JOINT REGION: AC joint capsular edema is noted on coronal oblique PD fat-sat image number 12 series 6 and suggest sequelae of AC joint capsular sprain. No AC joint widening or malalignment. There is no significant tear of the coracoclavicular ligament. BURSAE: No bursal fluid collection. ROTATOR CUFF TENDONS AND MUSCLES AND DELTOID: Supraspinatus and Infraspinatus: No tendinosis, tendon tearing, muscle atrophy or muscle edema. Teres Minor: No tendinosis, tendon tearing, muscle atrophy or muscle edema. Subscapularis: No tendinosis, tendon tearing, muscle atrophy or muscle edema. Deltoid: No muscle atrophy. BICEPS TENDON, LONG HEAD: The long head of the biceps tendon is appropriately positioned within the bicipital groove without tendon subluxation or dislocation. The biceps anchor appears intact. There is no significant tendinosis or tendon tearing. OTHER FINDINGS: There is no abnormality within the suprascapular or spinoglenoid notches nor within the quadrilateral space. There are increased number of small axillary region lymph nodes which could be reactive. Largest measures approximally 8 millimeter short axis on axial PD fat-sat image number 27 of series 4 for example. IMPRESSION: 1. Mild AC joint capsular edema. This may reflect sequelae of AC joint capsular sprain versus AC joint capsulitis depending on recent trauma history. No AC joint widening or malalignment. Coracoclavicular ligament intact. 2. The glenoid labrum is intact. 3. Rotator cuff tendons intact. 4. No acute fracture. 5. Increased number of subcentimeter right axillary region lymph nodes which could be reactive. Dictated by Scottie ePrkins MD @ 12/27/2024 2:02:12 PM (Electronically Signed)
== END 2024-12-27 07:57 | disposition home or self-care (01) ==
PROVIDERS: Visit Provider Family Medicine
DX: M25.511 Pain in right shoulder (principal); M25.411 Effusion, right shoulder
CPT/HCPCS: 23350; 73222; 77002; A9575